=== PATIENT | male | born 1965 | race African-American/Black ===

== ENCOUNTER 2016-10-16 20:29 | Inpatient (IN) | payer OTHER ==
[2016-10-16 21:24] VITALS: BMI 27.8
--- NOTE | 2016-10-16 22:21 | HP ---
CIWA Score - CIWA Score Nausea/Vomitin Muscle Tremors: 3 Anxiety: 3 Agitation: 3 Paroxysmal Sweats: 2 Orientation: 0-Oriented Tacttile Disturbances: 2-Mild Itch/Numbness/Burn Auditory Disturbances: 2-Mild Harshness/Frighten Visual Disturbances: 2-Mild Sensitivity Headache: 2-Mild CIWA-Ar Total Score: 22 Admission ROS BHS - HPI Chief Complaint: i need help stop drinking alcohol cocaine and marijuana Allergies/Adverse Reactions: Allergies Allergy/AdvReac Type Severity Reaction Status Date / Time tomato [Tomato] Allergy Intermediate Swelling Verified 10/16/16 22:10 No Known Drug Allergies Allergy Unknown Verified 10/16/16 22:10 tomatoes Allergy Intermediate Swelling Uncoded 10/16/16 22:10 PASTA Allergy Unknown Swelling Uncoded 10/16/16 22:10 History of Present Illness: this 51 years old male with alcohol,cocaine,marijuana,seeking help to stop, using ,last detox [facility] 12/24/13 to 12/28/13 several admissions for detox but relapsing htn no medication longest period of sobriety 9 years Exam Limitations: No Limitations - Ebola screening Have you traveled outside of the country in the last 21 days: No (N) Have you had contact with anyone from an Ebola affected area: No Have you been sick,other than usual withdrawal symptoms: No Do you have a fever: No - Review of Systems Constitutional: Loss of Appetite, Malaise, Night Sweats, Changes in sleep, Weakness EENT: reports: Nose Congestion Respiratory: reports: No Symptoms reported Cardiac: reports: No Symptoms Reported GI: reports: Diarrhea, Nausea, Vomiting, Abdominal cramping : reports: No Symptoms Reported Musculoskeletal: reports: Back Pain, Muscle Pain Integumentary: reports: Dryness Neuro: reports: Headache, Tremors Endocrine: reports: No Symptoms Reported Hematology: reports: No Symptoms Reported Psychiatric: reports: No Sypmtoms Reported, Judgement Intact, Mood/Affect Appropiate, Orientated x3 (bipolar disorder with ptsd) Patient History - Patient Medical History Hx Anemia: Yes (no medication) Hx Asthma: No Hx Chronic Obstructive Pulmonary Disease (COPD): No Hx Cancer: No Hx Cardiac Disorders: No Hx Congestive Heart Failure: No Hx Hypertension: Yes (lisinpril 10mg ) Hx Hypercholesterolemia: No Hx Pacemaker: No HX Cerebrovascular Accident: No Hx Seizures: No Hx Dementia: No Hx Diabetes: Yes (no med) Hx Gastrointestinal Disorders: No Hx Liver Disease: No Hx Genitourinary Disorders: No Hx Sexually Transmitted Disorders: No Hx Renal Disease (ESRD): No Hx Thyroid Disease: No Hx Human Immunodeficiency Virus (HIV): No (negative 09/20 negative) Hx Hepatitis C: No Hx Depression: Yes (PTSD/cannot remember medication name) Hx Suicide Attempt: No (denies) Hx Bipolar Disorder: Yes (PTSD) Hx Schizophrenia: No Other Medical History: no suicidal,no homicidal - Patient Surgical History Past Surgical History: Yes Hx Neurologic Surgery: No Hx Cataract Extraction: No Hx Cardiac Surgery: No Hx Lung Surgery: No Hx Breast Surgery: No Hx Breast Biopsy: No Hx Abdominal Surgery: No Hx Appendectomy: No Hx Cholecystectomy: No Hx Genitourinary Surgery: No Hx Section: No Hx Orthopedic Surgery: Yes Other Surgical History: s/p L mandible surgery. 15 yrs ago / L ear surgery 2 yrs ago Anesthesia Reaction: No - PPD History Documented Results: Negative w/o proof Date: 12/26/13 Results: negative PPD to be Administered?: Yes - Smoking Cessation Smoking history: Current every day smoker Have you smoked in the past 12 months: Yes Aproximately how many cigarettes per day: 20 Hx Chewing Tobacco Use: No Initiated information on smoking cessation: Yes 'Breaking Loose' booklet given: 10/16/16 - Substance & Tx. History Hx Alcohol Use: Yes Hx Substance Use: Yes Substance Use Type: Alcohol, Cocaine, Marijuana - Substances Abused Alcohol Route: Oral Frequency: Daily Amount used: vodka 2 pints, beer 1 of 6 packs Age of first use: 11 Date of Last Use: 10/16/16 Marijuana/Hashish Route: Smoking Frequency: 3-6 times per week Amount used: $25 Age of first use: 12 Date of Last Use: 10/16/16 Family Disease History - Family Disease History Family History: Denies Admission Physical Exam S - Vital Signs Vital Signs: Vital Signs - 24 hr 10/16/16 21:23 Temperature 98.4 F Pulse Rate 85 Respiratory 20 Rate Blood Pressure 160/84 - Physical General Appearance: Yes: Moderate Distress, Tremorous, Irritable, Sweating HEENTM: Yes: Normal ENT Inspection, Normocephalic, ELPIDIO, Pharynx Normal Respiratory: Yes: Lungs Clear, Normal Breath Sounds, No Respiratory Distress Neck: Yes: Within Normal Limits, Supple, Trachea in good position Breast: Yes: Within Normal Limits Cardiology: Yes: Within Normal Limits, Regular Rhythm, Regular Rate, S1, S2 Abdominal: Yes: Within Normal Limits, Normal Bowel Sounds, Non Tender, Flat, Soft Genitourinary: Yes: Within Normal Limits Back: Yes: Normal Inspection, Muscle Spasm Musculoskeletal: Yes: Back pain, Muscle Pain Extremities: Yes: Within Normal Limits, Normal Range of Motion, Tremors Neurological: Yes: legal process specialist II-XII NML intact, Fully Oriented, Alert, Motor Strength 5/5 Integumentary: Yes: Dry Lymphatic: Yes: Within Normal Limits - Diagnostic (1) Alcohol dependence with uncomplicated withdrawal Current Visit: Yes Status: Acute (2) Cocaine dependence Current Visit: Yes Status: Acute (3) Cannabis dependence Current Visit: Yes Status: Acute (4) DM Diabetes mellitus type 2 Current Visit: No Status: Active (5) HYPERTENSION Current Visit: No Status: Active (6) Anemia Current Visit: No Status: Acute (7) Nicotine dependence Current Visit: No Status: Acute (8) PTSD (post-traumatic stress disorder) Current Visit: No Status: Acute (9) Bipolar affective disorder, mixed, moderate Current Visit: No Status: Suspected Cleared for Admission [facility] - Detox or Rehab [facility] Level of Care: Medically Managed Detox Regimen/Protocol: Librium [facility] Breath Alcohol Content Breath Alcohol Content: 0.035 Urine Drug Screen - Results Drug Screen Negative: No Urine Drug Screen Results: THC-Marijuana, SHARONDA-Cocaine, MET-Methamphetamine
[2016-10-16] MEDS ORDERED: MAGNESIUM HYDROX 2400MG/30ML ORAL SUSPENSION 30 ML CUP PO PRN (22:32)
[2016-10-16] MEDS ORDERED: MENTHOL/PHENOL 1 EACH UD MM PRN (22:32)
[2016-10-16] MEDS ORDERED: ACETAMINOPHEN 325 MG TABLET (FP) PO PRN (22:32)
[2016-10-16] MEDS ORDERED: P-EPHED 60MG/TRIPROLIDI 2.5MG TABLET PO PRN (22:32)
[2016-10-16] MEDS ORDERED: IBUPROFEN 400 MG TABLET (FP) PO PRN (22:32)
[2016-10-16] MEDS ORDERED: MAGNESIUM CITRATE 300 ML BOTTLE PO PRN (22:32)
[2016-10-16] MEDS ORDERED: chlordiazePOXIDE HCL 25 MG CAPSULE PO PRN (22:32)
[2016-10-16] MEDS ORDERED: guaiFENesin/D-METHORPHAN HB 10 ML UNIT-DOSE CUPS PO PRN (22:32)
[2016-10-16] MEDS ORDERED: MAG HYDROX/AL HYDROX/SIMETH 30 ML UNIT-DOSE CUP PO PRN (22:32)
[2016-10-16] MEDS ORDERED: hydrOXYzine PAMOATE 50 MG CAPSULE (FP) PO PRN (22:32)
[2016-10-16] MEDS ORDERED: diphenhydrAMINE HCL 50 MG CAPSULE PO PRN (22:32)
[2016-10-16] MEDS ORDERED: chlordiazePOXIDE HCL 25 MG CAPSULE PO ONE (22:32)
[2016-10-16] MEDS ORDERED: LOPERAMIDE HCL 2 MG CAPSULE PO PRN (22:32)
[2016-10-16] MEDS: NICOTINE POLACRILEX 2 MG GUM BC PRN (23:51)
[2016-10-17] MEDS: chlordiazePOXIDE HCL 25 MG CAPSULE PO SCH ×5 (06:09→21:59)
[2016-10-17] MEDS: NICOTINE POLACRILEX 2 MG GUM BC PRN ×2 (09:04→22:29)
--- NOTE | 2016-10-17 09:29 | PN ---
S CIWA - CIWA Score Nausea/Vomitin-No Nausea/No Vomiting Muscle Tremors: 4-Moderate,w/Arms Extend Anxiety: 3 Agitation: 3 Paroxysmal Sweats: 3 Orientation: 0-Oriented Tacttile Disturbances: 0-None Auditory Disturbances: 0-None Visual Disturbances: 0-None Headache: 0-None Present CIWA-Ar Total Score: 13 S Progress Note (SOAP) Subjective: sweats mild shakes interrupted sleep agitation Objective: 10/17/16 09:26 Vital Signs Temperature 97.3 F L 10/17/16 06:00 Pulse Rate 73 10/17/16 06:00 Respiratory Rate 20 10/17/16 06:00 Blood Pressure 145/84 10/17/16 06:00 O2 Sat by Pulse Oximetry (%) Laboratory Tests 10/16/16 22:28 POC Glucometer 113 labs pending awake/alert ambulating no acute distress Assessment: 10/17/16 09:28 withdrawal sx Plan: continue detox increase fluids pending labs
--- NOTE | 2016-10-17 10:58 | EKG ---
Test Reason : Blood Pressure : / mmHG Vent. Rate : 077 BPM Atrial Rate : 077 BPM P-R Int : 146 ms QRS Dur : 094 ms QT Int : 398 ms P-R-T Axes : 054 078 052 degrees QTc Int : 450 ms NORMAL SINUS RHYTHM NORMAL ECG NO PREVIOUS ECGS AVAILABLE Confirmed by JHON CAREY MD ([id number]) on 10/17/2016 10:58:03 AM Referred By: Confirmed By:JHON CAREY MD
[2016-10-17] MEDS: PRENATAL VITAMINS W/ FOLIC ACID TABLET (FP) PO SCH (11:37)
[2016-10-17] MEDS: amLODIPine BESYLATE 10 MG TABLET (FP) PO SCH (12:00)
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
[2016-10-17 17:28] LABS: URINE APPEARANCE CLEAR; URINE BILIRUBIN NEGATIVE (NEGATIVE); URINE BLOOD NEGATIVE (NEGATIVE); URINE COLOR LTYELLOW; URINE GLUCOSE (UA) NEGATIVE (NEGATIVE); URINE KETONE NEGATIVE (NEGATIVE); URINE LEUK ESTERASE NEGATIVE (NEGATIVE); URINE NITRITE NEGATIVE (NEGATIVE); URINE PROTEIN NEGATIVE (NEGATIVE); URINE UROBILINOGEN NEGATIVE E.U./dl (0.2-1.0)
[2016-10-17] MEDS: THIAMINE HCL 100 MG TABLET (FP) PO SCH (21:59)
[2016-10-18] MEDS: chlordiazePOXIDE HCL 25 MG CAPSULE PO SCH ×3 (05:47→17:21)
[2016-10-18] MEDS: NICOTINE POLACRILEX 2 MG GUM BC PRN ×3 (06:49→20:22)
--- NOTE | 2016-10-18 09:40 | PN ---
S CIWA - CIWA Score Nausea/Vomitin-No Nausea/No Vomiting Muscle Tremors: 4-Moderate,w/Arms Extend Anxiety: 3 Agitation: 3 Paroxysmal Sweats: 3 Orientation: 0-Oriented Tacttile Disturbances: 0-None Auditory Disturbances: 0-None Visual Disturbances: 0-None Headache: 0-None Present CIWA-Ar Total Score: 13 S Progress Note (SOAP) Subjective: sweats irritable agitation interrupted sleep Objective: 10/18/16 09:38 Vital Signs Temperature 97.9 F 10/18/16 10:00 Pulse Rate 84 10/18/16 10:00 Respiratory Rate 16 10/18/16 10:00 Blood Pressure 156/89 10/18/16 10:00 O2 Sat by Pulse Oximetry (%) Laboratory Tests 10/16/16 10/17/16 22:28 15:00 POC Glucometer 113 Urine Color Ltyellow Urine Appearance Clear Urine pH 6.0 Ur Specific [place] 1.020 Urine Protein Negative Urine Glucose (UA) Negative Urine Ketones Negative Urine Blood Negative Urine Nitrite Negative Urine Bilirubin Negative Urine Urobilinogen Negative Ur Leukocyte Esterase Negative rest of labs pending awake/alert ambulating no acute distress Assessment: 10/18/16 09:39 withdrawal sx Plan: continue detox increase fluids labs pending
[2016-10-18 09:57] LABS: MCH 24.1 pg (25.7-33.7); MCHC 31.8 g/dl (32.0-35.9); MEAN CELL VOLUME 75.9 fl (80-96); MEAN PLT VOLUME 8.4 fl (7.5-11.1); PLATELET COUNT 210 K/MM3 (134-434); RDW 15.5 % (11.9-15.9); WHITE BLOOD COUNT 4.2 K/mm3 (4.0-10.0)
[2016-10-18] MEDS: PARoxetine HCL 20 MG TABLET (FP) PO SCH (10:25)
[2016-10-18] MEDS: PRENATAL VITAMINS W/ FOLIC ACID TABLET (FP) PO SCH (10:25)
[2016-10-18] MEDS: amLODIPine BESYLATE 10 MG TABLET (FP) PO SCH (10:25)
[2016-10-18 10:51] LABS: ALBUMIN 3.6 g/dl (3.4-5.0); ALK PHOS 76 U/L (45-117); ANION GAP 10 (8-16); BILIRUBIN,TOTAL 0.6 mg/dL (0.2-1.0); CALCIUM 9.4 mg/dL (8.5-10.1); CO2 27 mmol/L (21-32); COCKROFT - GAULT 99.65; CREATININE 1.1 mg/dL (0.7-1.3); GLUCOSE,RANDOM 106 mg/dL (74-106); SGOT/AST 44 U/L (15-37); SGPT/ALT 61 U/L (12-78); TOT PROT 6.8 g/dl (6.4-8.2)
[2016-10-18 12:34] LABS: HIV 1 & 2 AB NEGATIVE; HIV 1 AGp24 NEGATIVE
--- NOTE | 2016-10-18 15:36 | PN ---
[facility] Progress Note Note: Psychiatry Attending's note : BMP results seen.Normal electrolytes. BUN = 10 / creatinine = 1.1 / GFR > 60. Normal renal function.Urinalysis: unremarkable. Thyroid function tests requested.Pending. [place] 300 mg po bid. Side effects/benefits discussed with patient. He remains in agreement with this careplan. Will follow lithium level in 5 more days.
[2016-10-18] MEDS: THIAMINE HCL 100 MG TABLET (FP) PO SCH (22:08)
[2016-10-18] MEDS: chlordiazePOXIDE 5 MG CAPSULE PO SCH (22:08)
[2016-10-18] MEDS: LITHIUM CARBONATE 300 MG CAPSULE (FP) PO SCH (22:08)
[2016-10-19] MEDS: chlordiazePOXIDE 5 MG CAPSULE PO SCH ×4 (05:46→17:57)
[2016-10-19] MEDS: NICOTINE POLACRILEX 2 MG GUM BC PRN ×2 (05:50→17:57)
--- NOTE | 2016-10-19 12:06 | PN ---
BHS Progress Note (SOAP) Subjective: tired irritable Objective: 10/19/16 12:04 Vital Signs Temperature 97.5 F L 10/19/16 09:52 Pulse Rate 79 10/19/16 09:52 Respiratory Rate 20 10/19/16 09:52 Blood Pressure 145/79 10/19/16 09:52 O2 Sat by Pulse Oximetry (%) awake/alert ambulating no acute distress Assessment: 10/19/16 12:05 withdrawal sx Plan: continue detox increase fluids d/c in am
[2016-10-19] MEDS: LITHIUM CARBONATE 300 MG CAPSULE (FP) PO SCH ×2 (14:20→22:38)
[2016-10-19] MEDS: amLODIPine BESYLATE 10 MG TABLET (FP) PO SCH (14:20)
[2016-10-19] MEDS: PARoxetine HCL 20 MG TABLET (FP) PO SCH (14:20)
[2016-10-19] MEDS: PRENATAL VITAMINS W/ FOLIC ACID TABLET (FP) PO SCH (14:20)
[2016-10-19] MEDS: THIAMINE HCL 100 MG TABLET (FP) PO SCH (22:38)
[2016-10-19] MEDS: chlordiazePOXIDE HCL 10 MG CAPSULE PO SCH (22:38)
[2016-10-20] MEDS: chlordiazePOXIDE HCL 10 MG CAPSULE PO SCH ×2 (06:02→10:03)
[2016-10-20] MEDS: NICOTINE POLACRILEX 2 MG GUM BC PRN ×2 (06:18→10:04)
--- NOTE | 2016-10-20 08:27 | DS ---
[facility] Detox Discharge Summary Admission Date: 10/16/16 Discharge Date: 10/20/16 - History Present History: Alcohol Dependence, Cannabis Dependence, Cocaine Dependence - Physical Exam Results Vital Signs: Vital Signs Temperature 96.7 F L 10/20/16 07:33 Pulse Rate 74 10/20/16 07:33 Respiratory Rate 18 10/20/16 07:33 Blood Pressure 127/70 10/20/16 07:33 O2 Sat by Pulse Oximetry (%) - Treatment Hospital Course: Detox Protocol Followed, Detoxed Safely, Responded well, Discharged Condition Good, Rehab Referral Accepted - Medication Discharge Medications: Ambulatory Orders NK [No Known Home Medication] 10/16/16 - Diagnosis (1) Alcohol dependence with uncomplicated withdrawal Current Visit: Yes Status: Chronic (2) Bipolar disorder Current Visit: Yes Status: Acute (3) Cannabis dependence Current Visit: Yes Status: Chronic (4) Cocaine dependence Current Visit: Yes Status: Chronic Qualifiers: Substance use status: uncomplicated Qualified Code(s): F14.20 - Cocaine dependence, uncomplicated (5) Nicotine dependence Current Visit: Yes Status: Chronic Qualifiers: Nicotine product type: cigarettes Substance use status: uncomplicated Qualified Code(s): F17.210 - Nicotine dependence, cigarettes, uncomplicated (6) Acid reflux Current Visit: Yes Status: Chronic Qualifiers: Esophagitis presence: without esophagitis Qualified Code(s): K21.9 - Gastro-esophageal reflux disease without esophagitis (7) Anemia Current Visit: Yes Status: Chronic Qualifiers: Anemia type: unspecified type Qualified Code(s): D64.9 - Anemia, unspecified (8) DM Diabetes mellitus type 2 Current Visit: Yes Status: Chronic (9) HYPERTENSION Current Visit: Yes Status: Chronic (10) PTSD (post-traumatic stress disorder) Current Visit: Yes Status: Chronic (11) Cannabis abuse with intoxication Current Visit: No Status: Acute (12) Depression Current Visit: No Status: Acute (13) Drug-induced mood disorder Current Visit: No Status: Acute (14) Bipolar affective disorder, mixed, moderate Current Visit: No Status: Suspected - AMA Did Patient Leave Against Medical Advice: No ([facility])
[2016-10-20] MEDS: PRENATAL VITAMINS W/ FOLIC ACID TABLET (FP) PO SCH (10:03)
[2016-10-20] MEDS: PARoxetine HCL 20 MG TABLET (FP) PO SCH (10:03)
[2016-10-20] MEDS: amLODIPine BESYLATE 10 MG TABLET (FP) PO SCH (10:03)
[2016-10-20] MEDS: LITHIUM CARBONATE 300 MG CAPSULE (FP) PO SCH (10:03)
[2016-10-20 11:01] VITALS: BP 129/67; PULSE 85; TEMP 97.9
== END 2016-10-20 10:40 | disposition home or self-care (01) | DRG 774 ==
LOC: YASAS 20:29 → Y6N 22:35
PROVIDERS: ADMIT Internal Medicine; ATTEND Internal Medicine
PROC: HZ2ZZZZ Detoxification Services for Substance Abuse Treatment (ICD-10-PCS; principal; 2016-10-16)
DX: F10.230 Alcohol dependence with withdrawal, uncomplicated (principal); F14.20 Cocaine dependence, uncomplicated; F12.20 Cannabis dependence, uncomplicated; F17.210 Nicotine dependence, cigarettes, uncomplicated; F43.10 Post-traumatic stress disorder, unspecified; F32.9 Major depressive disorder, single episode, unspecified; F31.62 Bipolar disorder, current episode mixed, moderate; F19.24 Other psychoactive substance dependence with psychoactive substance-induced mood disorder; K21.9 Gastro-esophageal reflux disease without esophagitis; D64.9 Anemia, unspecified; E11.9 Type 2 diabetes mellitus without complications; I10 Essential (primary) hypertension; M10.9 Gout, unspecified
CPT/HCPCS: 36415; 80053; 80178; 81003; 85027; 86593; 87389; 93005; 93010

== ENCOUNTER 2016-12-01 11:31 | Inpatient (IN) | payer OTHER ==
[2016-12-01 12:25] VITALS: BMI 28.7
--- NOTE | 2016-12-01 17:16 | HP ---
CIWA Score - CIWA Score Nausea/Vomitin-No Nausea/No Vomiting Muscle Tremors: 4-Moderate,w/Arms Extend Anxiety: 3 Agitation: 4-Moderately Restless Paroxysmal Sweats: 3 Orientation: 0-Oriented Tacttile Disturbances: 0-None Auditory Disturbances: 0-None Visual Disturbances: 0-None Headache: 0-None Present CIWA-Ar Total Score: 14 Admission ROS BHS - HPI Chief Complaint: I am here to detox. Allergies/Adverse Reactions: Allergies Allergy/AdvReac Type Severity Reaction Status Date / Time tomato [Tomato] Allergy Intermediate Swelling Verified 12/01/16 16:38 No Known Drug Allergies Allergy Unknown Verified 12/01/16 16:38 tomatoes Allergy Intermediate Swelling Uncoded 12/01/16 16:38 PASTA Allergy Unknown Swelling Uncoded 12/01/16 16:38 History of Present Illness: pt is a 51yr old male with a history of alcohol and cannabis dependence seeking detox for treatment. 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.) Respiratory: reports: No Symptoms reported Cardiac: reports: No Symptoms Reported GI: reports: Poor Fluid Intake : reports: No Symptoms Reported Musculoskeletal: reports: No Symptoms Reported Integumentary: reports: [place], Sweating Neuro: reports: No Symptoms reported Endocrine: reports: [place] Hematology: reports: No Symptoms Reported Psychiatric: reports: Judgement Intact, Mood/Affect Appropiate, Orientated x3, Agitated, Anxious Other Systems: Reviewed and Negative Patient History - Patient Medical History Hx Anemia: No Hx Asthma: No Hx Chronic Obstructive Pulmonary Disease (COPD): No Hx Cancer: No Hx Cardiac Disorders: No Hx Congestive Heart Failure: No Hx Hypertension: Yes (lisinpril 10mg ) Hx Hypercholesterolemia: No Hx Pacemaker: No HX Cerebrovascular Accident: No Hx Seizures: No Hx Dementia: No Hx Diabetes: No Hx Gastrointestinal Disorders: No Hx Liver Disease: No Hx Genitourinary Disorders: No Hx Sexually Transmitted Disorders: No Hx Renal Disease (ESRD): No Hx Thyroid Disease: No Hx Human Immunodeficiency Virus (HIV): No (negative 09/20 negative) Hx Hepatitis C: No (negative) Hx Depression: Yes (PTSD/cannot remember medication name) Hx Suicide Attempt: No (denies) Hx Bipolar Disorder: Yes (PTSD) Hx Schizophrenia: No - Patient Surgical History Past Surgical History: Yes Hx Neurologic Surgery: No Hx Cataract Extraction: No Hx Cardiac Surgery: No Hx Lung Surgery: No Hx Breast Surgery: No Hx Breast Biopsy: No Hx Abdominal Surgery: No Hx Appendectomy: No Hx Cholecystectomy: No Hx Genitourinary Surgery: No Hx Section: No Hx Orthopedic Surgery: Yes Other Surgical History: s/p L mandible surgery. 15 yrs ago / L ear surgery 2 yrs ago Anesthesia Reaction: No - PPD History Previous Implant?: Yes Documented Results: Negative w/proof Date: 10/18/16 Results: negative PPD to be Administered?: No - Reproductive History Patient is a Female of Child Bearing Age (11 -55 yrs old): No - Smoking Cessation Smoking history: Current every day smoker Have you smoked in the past 12 months: Yes Aproximately how many cigarettes per day: 20 Hx Chewing Tobacco Use: No Initiated information on smoking cessation: Yes 'Breaking Loose' booklet given: 12/01/16 - Substance & Tx. History Hx Alcohol Use: Yes Hx Substance Use: Yes Substance Use Type: Alcohol, Marijuana Hx Substance Use Treatment: Yes ([facility]) - Substances Abused Alcohol Route: Oral Frequency: Daily Amount used: liquor- 3 pints, beer- 1 six pack Age of first use: 11 Date of Last Use: 12/01/16 Marijuana/Hashish Route: Smoking Frequency: 1-2 times per week Amount used: 2 blunts Age of first use: 14 Date of Last Use: 12/01/16 Family Disease History - Family Disease History Family Disease History: Other: Mother () Admission Physical Exam [facility] - Vital Signs Vital Signs: Vital Signs - 24 hr 12/01/16 12:22 Temperature 96.4 F L Pulse Rate 80 Respiratory 20 Rate Blood Pressure 149/79 - Physical General Appearance: Yes: Appropriately Dressed, Mild Distress, Tremorous, Irritable, Sweating, Anxious HEENTM: Yes: Hearing grossly Normal, Normal Voice Respiratory: Yes: Lungs Clear, Normal Breath Sounds, No Respiratory Distress Neck: Yes: No masses,lesions,Nodules Breast: Yes: Within Normal Limits Cardiology: Yes: Regular Rhythm, Regular Rate, S1, S2 Abdominal: Yes: Normal Bowel Sounds Genitourinary: Yes: Within Normal Limits Back: Yes: Normal Inspection Musculoskeletal: Yes: full range of Motion Extremities: Yes: Normal Inspection, Non-Tender Neurological: Yes: Fully Oriented, Alert, Normal Response Integumentary: Yes: Normal Color, Diaphoresis Lymphatic: Yes: Within Normal Limits - Diagnostic (1) Alcohol dependence with uncomplicated withdrawal Current Visit: Yes Status: Chronic (2) Cannabis dependence Current Visit: Yes Status: Chronic (3) HYPERTENSION Current Visit: Yes Status: Chronic (4) Nicotine dependence Current Visit: Yes Status: Chronic Qualifiers: Nicotine product type: cigarettes Substance use status: uncomplicated Qualified Code(s): F17.210 - Nicotine dependence, cigarettes, uncomplicated Cleared for Admission [facility] - Detox or Rehab [facility] Level of Care: Medically Managed Detox Regimen/Protocol: Valium S Breath Alcohol Content Breath Alcohol Content: 0 Urine Drug Screen - Results Drug Screen Negative: No Urine Drug Screen Results: THC-Marijuana, BZO-Benzodiazepines
[2016-12-01] MEDS ORDERED: P-EPHED 60MG/TRIPROLIDI 2.5MG TABLET PO PRN (17:23)
[2016-12-01] MEDS ORDERED: diphenhydrAMINE HCL 50 MG CAPSULE PO PRN (17:23)
[2016-12-01] MEDS ORDERED: IBUPROFEN 400 MG TABLET (FP) PO PRN (17:23)
[2016-12-01] MEDS ORDERED: diazePAM 5 MG TABLET PO ONE (17:23)
[2016-12-01] MEDS ORDERED: LOPERAMIDE HCL 2 MG CAPSULE PO PRN (17:23)
[2016-12-01] MEDS ORDERED: MENTHOL/PHENOL 1 EACH UD MM PRN (17:23)
[2016-12-01] MEDS ORDERED: MAG HYDROX/AL HYDROX/SIMETH 30 ML UNIT-DOSE CUP PO PRN (17:23)
[2016-12-01] MEDS ORDERED: hydrOXYzine PAMOATE 50 MG CAPSULE (FP) PO PRN (17:23)
[2016-12-01] MEDS ORDERED: MAGNESIUM HYDROX 2400MG/30ML ORAL SUSPENSION 30 ML CUP PO PRN (17:23)
[2016-12-01] MEDS ORDERED: guaiFENesin/D-METHORPHAN HB 10 ML UNIT-DOSE CUPS PO PRN (17:23)
[2016-12-01] MEDS ORDERED: MAGNESIUM CITRATE 300 ML BOTTLE PO PRN (17:23)
[2016-12-01] MEDS: LISINOPRIL 10 MG TABLET (FP) PO SCH (17:59)
[2016-12-01] MEDS: HYDROCHLOROTHIAZIDE 25 MG TABLET (FP) PO SCH (17:59)
[2016-12-01] MEDS: THIAMINE HCL 100 MG TABLET (FP) PO SCH (22:14)
[2016-12-01] MEDS: diazePAM 5 MG TABLET PO SCH (22:14)
[2016-12-02] MEDS: diazePAM 5 MG TABLET PO SCH ×3 (05:41→22:35)
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
[2016-12-02] MEDS: PRENATAL VITAMINS W/ FOLIC ACID TABLET (FP) PO SCH (10:27)
[2016-12-02] MEDS: LISINOPRIL 10 MG TABLET (FP) PO SCH (10:28)
[2016-12-02] MEDS: HYDROCHLOROTHIAZIDE 25 MG TABLET (FP) PO SCH (10:28)
[2016-12-02 10:43] LABS: MCH 24.2 pg (25.7-33.7); MCHC 31.4 g/dl (32.0-35.9); MEAN CELL VOLUME 76.9 fl (80-96); MEAN PLT VOLUME 8.2 fl (7.5-11.1); PLATELET COUNT 217 K/MM3 (134-434); RDW 16.3 % (11.9-15.9); WHITE BLOOD COUNT 5.6 K/mm3 (4.0-10.0)
[2016-12-02 10:46] LABS: ALBUMIN 3.4 g/dl (3.4-5.0); ANION GAP 8 (8-16); CO2 30 mmol/L (21-32); GLUCOSE,RANDOM 97 mg/dL (74-106); SGOT/AST 22 U/L (15-37); SGPT/ALT 31 U/L (12-78)
[2016-12-02 10:48] LABS: ALK PHOS 60 U/L (45-117); BILIRUBIN,TOTAL 0.6 mg/dL (0.2-1.0); CALCIUM 9.2 mg/dL (8.5-10.1); CREATININE 1.2 mg/dL (0.7-1.3); TOT PROT 6.6 g/dl (6.4-8.2)
[2016-12-02] MEDS: NICOTINE 21 MG/24 HOURS TOPICAL PATCH TD SCH (11:03)
--- NOTE | 2016-12-02 15:49 | PN ---
[facility] CIWA - CIWA Score Nausea/Vomitin-Mild Nausea/No Vomiting Muscle Tremors: 2 Anxiety: 5 Agitation: 0-Normal Activity Paroxysmal Sweats: 3 Orientation: 0-Oriented Tacttile Disturbances: 3-Moderate Itch/Numb/Burn Auditory Disturbances: 0-None Visual Disturbances: 0-None Headache: 0-None Present CIWA-Ar Total Score: 14 S Progress Note (SOAP) Subjective: Anxious, Sweating. Objective: PT. A & O X 3. NO ACUTE DISTRESS. PT. DENIES CHEST PAIN. 12/02/16 15:47 Vital Signs Temperature 97.5 F L 12/02/16 13:46 Pulse Rate 74 12/02/16 13:46 Respiratory Rate 18 12/02/16 13:46 Blood Pressure 117/72 12/02/16 13:46 O2 Sat by Pulse Oximetry (%) Laboratory Tests 12/02/16 12/02/16 12/02/16 08:00 08:00 08:00 WBC 5.6 D RBC 4.92 Hgb 11.9 Hct 37.8 MCV 76.9 L MCH 24.2 L MCHC 31.4 L RDW 16.3 H Plt Count 217 MPV 8.2 Sodium 140 Potassium 4.0 Chloride 102 Carbon Dioxide 30 Anion Gap 8 BUN 9 Creatinine 1.2 Creat Clearance w eGFR > 60 Random Glucose 97 Calcium 9.2 Total Bilirubin 0.6 AST 22 D ALT 31 D Alkaline Phosphatase 60 D Total Protein 6.6 Albumin 3.4 RPR Titer Nonreactive LABS NOTED. UA NOT YET COLLECTED. 12/02/16 15:48 Assessment: 12/02/16 15:48 WITHDRAWAL SYMPTOMS. Plan: CONTINUE DETOX.
[2016-12-02] MEDS: diazePAM 5 MG TABLET PO PRN (17:35)
[2016-12-02] MEDS: NICOTINE POLACRILEX 4 MG GUM BUC PRN (17:35)
[2016-12-02] MEDS: THIAMINE HCL 100 MG TABLET (FP) PO SCH (22:35)
[2016-12-03] MEDS: diazePAM 5 MG TABLET PO PRN (05:17)
[2016-12-03] MEDS: diazePAM 5 MG TABLET PO SCH ×2 (10:52→21:50)
[2016-12-03] MEDS: HYDROCHLOROTHIAZIDE 25 MG TABLET (FP) PO SCH (10:53)
[2016-12-03] MEDS: LISINOPRIL 10 MG TABLET (FP) PO SCH (10:53)
[2016-12-03] MEDS: PRENATAL VITAMINS W/ FOLIC ACID TABLET (FP) PO SCH (10:53)
[2016-12-03] MEDS: NICOTINE 21 MG/24 HOURS TOPICAL PATCH TD SCH (10:54)
[2016-12-03] MEDS: NICOTINE POLACRILEX 4 MG GUM BUC PRN ×2 (10:55→21:51)
--- NOTE | 2016-12-03 14:43 | PN ---
S CIWA - CIWA Score Nausea/Vomitin Muscle Tremors: 4-Moderate,w/Arms Extend Anxiety: 4-Mod. Anxious/Guarded Agitation: 3 Paroxysmal Sweats: No Perspiration Orientation: 0-Oriented Tacttile Disturbances: 1-Very Mild Itch/Numbness Auditory Disturbances: 1-Very Mild Visual Disturbances: 0-None Headache: 2-Mild CIWA-Ar Total Score: 18 [facility] Progress Note (SOAP) Subjective: Sweating, anxious, interrupted sleep, nausea Objective: 12/03/16 14:41 Last Vital Signs Temp Pulse Resp BP Pulse Ox 97.7 F 81 18 139/77 12/03/16 13:44 12/03/16 13:44 12/03/16 13:44 12/03/16 13:44 Laboratory Tests 12/02/16 12/02/16 12/02/16 08:00 08:00 08:00 WBC 5.6 D RBC 4.92 Hgb 11.9 Hct 37.8 MCV 76.9 L MCH 24.2 L MCHC 31.4 L RDW 16.3 H Plt Count 217 MPV 8.2 Sodium 140 Potassium 4.0 Chloride 102 Carbon Dioxide 30 Anion Gap 8 BUN 9 Creatinine 1.2 Creat Clearance w eGFR > 60 Random Glucose 97 Calcium 9.2 Total Bilirubin 0.6 AST 22 D ALT 31 D Alkaline Phosphatase 60 D Total Protein 6.6 Albumin 3.4 RPR Titer Nonreactive Labs noted Assessment: 12/03/16 14:42 Withdrawal symptoms Plan: Continue detox Encouraged to drink lots of water
[2016-12-03] MEDS: THIAMINE HCL 100 MG TABLET (FP) PO SCH (21:49)
[2016-12-04] MEDS: diazePAM 5 MG TABLET PO PRN (05:30)
--- NOTE | 2016-12-04 10:00 | EKG ---
Test Reason : Blood Pressure : / mmHG Vent. Rate : 076 BPM Atrial Rate : 076 BPM P-R Int : 140 ms QRS Dur : 084 ms QT Int : 398 ms P-R-T Axes : 059 082 053 degrees QTc Int : 447 ms NORMAL SINUS RHYTHM NORMAL ECG WHEN COMPARED WITH ECG OF 16-OCT-2016 22:59, NO SIGNIFICANT CHANGE WAS FOUND Confirmed by JHON CAREY MD ([id number]) on 12/04/2016 9:59:22 AM Referred By: Byron Walton Confirmed By:JHON CAREY MD
[2016-12-04] MEDS: HYDROCHLOROTHIAZIDE 25 MG TABLET (FP) PO SCH (10:51)
[2016-12-04] MEDS: PRENATAL VITAMINS W/ FOLIC ACID TABLET (FP) PO SCH (10:51)
[2016-12-04] MEDS: LISINOPRIL 10 MG TABLET (FP) PO SCH (10:51)
[2016-12-04] MEDS: NICOTINE 21 MG/24 HOURS TOPICAL PATCH TD SCH (10:51)
[2016-12-04] MEDS: diazePAM 5 MG TABLET PO SCH (10:52)
--- NOTE | 2016-12-04 14:31 | PN ---
[facility] Progress Note (SOAP) Subjective: Sweating,interrupted sleep,restless Objective: 12/04/16 14:29 Vital Signs - 8 hr 12/04/16 09:24 Temperature 97.3 F L Pulse Rate 65 Respiratory 18 Rate Blood Pressure 145/83 Laboratory Last Values WBC 5.6 K/mm3 (4.0-10.0) D 12/02/16 08:00 RBC 4.92 M/mm3 (4.00-5.60) 12/02/16 08:00 Hgb 11.9 GM/dL (11.7-16.9) 12/02/16 08:00 Hct 37.8 % (35.4-49) 12/02/16 08:00 MCV 76.9 fl (80-96) L 12/02/16 08:00 MCH 24.2 pg (25.7-33.7) L 12/02/16 08:00 MCHC 31.4 g/dl (32.0-35.9) L 12/02/16 08:00 RDW 16.3 % (11.9-15.9) H 12/02/16 08:00 Plt Count 217 K/MM3 (134-434) 12/02/16 08:00 MPV 8.2 fl (7.5-11.1) 12/02/16 08:00 Sodium 140 mmol/L (136-145) 12/02/16 08:00 Potassium 4.0 mmol/L (3.5-5.1) 12/02/16 08:00 Chloride 102 mmol/L (98-107) 12/02/16 08:00 Carbon Dioxide 30 mmol/L (21-32) 12/02/16 08:00 Anion Gap 8 (8-16) 12/02/16 08:00 BUN 9 mg/dL (7-18) 12/02/16 08:00 Creatinine 1.2 mg/dL (0.7-1.3) 12/02/16 08:00 Creat Clearance w eGFR > 60 (>60) 12/02/16 08:00 Random Glucose 97 mg/dL (74-106) 12/02/16 08:00 Calcium 9.2 mg/dL (8.5-10.1) 12/02/16 08:00 Total Bilirubin 0.6 mg/dL (0.2-1.0) 12/02/16 08:00 AST 22 U/L (15-37) D 12/02/16 08:00 ALT 31 U/L (12-78) D 12/02/16 08:00 Alkaline Phosphatase 60 U/L (45-117) D 12/02/16 08:00 Total Protein 6.6 g/dl (6.4-8.2) 12/02/16 08:00 Albumin 3.4 g/dl (3.4-5.0) 12/02/16 08:00 RPR Titer Nonreactive (NONREACTIVE) 12/02/16 08:00 labs noted Assessment: 12/04/16 14:30 Withdrawal sx. Plan: Continue detox
[2016-12-04 17:00] LABS: URINE APPEARANCE CLEAR; URINE BILIRUBIN NEGATIVE (NEGATIVE); URINE BLOOD NEGATIVE (NEGATIVE); URINE COLOR YELLOW; URINE GLUCOSE (UA) NEGATIVE (NEGATIVE); URINE KETONE NEGATIVE (NEGATIVE); URINE LEUK ESTERASE NEGATIVE (NEGATIVE); URINE NITRITE NEGATIVE (NEGATIVE); URINE PROTEIN NEGATIVE (NEGATIVE); URINE UROBILINOGEN NEGATIVE mg/dL (0.2-1.0)
[2016-12-05] MEDS: THIAMINE HCL 100 MG TABLET (FP) PO SCH (00:01)
[2016-12-05] MEDS: diazePAM 5 MG TABLET PO SCH (00:01)
[2016-12-05] MEDS: ACETAMINOPHEN 325 MG TABLET (FP) PO PRN ×2 (01:11→05:19)
[2016-12-05 06:13] VITALS: BP 139/82; PULSE 64; TEMP 98
[2016-12-05] MEDS ORDERED: diazePAM 5 MG TABLET PO SCH (10:00)
--- NOTE | 2016-12-05 13:30 | DS ---
[facility] Detox Discharge Summary Admission Date: 12/01/16 Discharge Date: 12/05/16 - History Present History: Alcohol Dependence, Cannabis Dependence Pertinent Past History: HTN - Physical Exam Results Vital Signs: Vital Signs Temperature 98 F 12/05/16 06:12 Pulse Rate 64 12/05/16 06:12 Respiratory Rate 18 12/05/16 06:12 Blood Pressure 139/82 12/05/16 06:12 O2 Sat by Pulse Oximetry (%) Pertinent Admission Physical Exam Findings: Withdrawal sx. Laboratory Last Values WBC 5.6 K/mm3 (4.0-10.0) D 12/02/16 08:00 RBC 4.92 M/mm3 (4.00-5.60) 12/02/16 08:00 Hgb 11.9 GM/dL (11.7-16.9) 12/02/16 08:00 Hct 37.8 % (35.4-49) 12/02/16 08:00 MCV 76.9 fl (80-96) L 12/02/16 08:00 MCH 24.2 pg (25.7-33.7) L 12/02/16 08:00 MCHC 31.4 g/dl (32.0-35.9) L 12/02/16 08:00 RDW 16.3 % (11.9-15.9) H 12/02/16 08:00 Plt Count 217 K/MM3 (134-434) 12/02/16 08:00 MPV 8.2 fl (7.5-11.1) 12/02/16 08:00 Sodium 140 mmol/L (136-145) 12/02/16 08:00 Potassium 4.0 mmol/L (3.5-5.1) 12/02/16 08:00 Chloride 102 mmol/L (98-107) 12/02/16 08:00 Carbon Dioxide 30 mmol/L (21-32) 12/02/16 08:00 Anion Gap 8 (8-16) 12/02/16 08:00 BUN 9 mg/dL (7-18) 12/02/16 08:00 Creatinine 1.2 mg/dL (0.7-1.3) 12/02/16 08:00 Creat Clearance w eGFR > 60 (>60) 12/02/16 08:00 Random Glucose 97 mg/dL (74-106) 12/02/16 08:00 Calcium 9.2 mg/dL (8.5-10.1) 12/02/16 08:00 Total Bilirubin 0.6 mg/dL (0.2-1.0) 12/02/16 08:00 AST 22 U/L (15-37) D 12/02/16 08:00 ALT 31 U/L (12-78) D 12/02/16 08:00 Alkaline Phosphatase 60 U/L (45-117) D 12/02/16 08:00 Total Protein 6.6 g/dl (6.4-8.2) 12/02/16 08:00 Albumin 3.4 g/dl (3.4-5.0) 12/02/16 08:00 Urine Color Yellow 12/03/16 16:30 Urine Appearance Clear 12/03/16 16:30 Urine pH 5.0 (5.0-8.0) 12/03/16 16:30 Ur Specific [place] 1.025 (1.005-1.025) 12/03/16 16:30 Urine Protein Negative (NEGATIVE) 12/03/16 16:30 Urine Glucose (UA) Negative (NEGATIVE) 12/03/16 16:30 Urine Ketones Negative (NEGATIVE) 12/03/16 16:30 Urine Blood Negative (NEGATIVE) 12/03/16 16:30 Urine Nitrite Negative (NEGATIVE) 12/03/16 16:30 Urine Bilirubin Negative (NEGATIVE) 12/03/16 16:30 Urine Urobilinogen Negative mg/dL (0.2-1.0) 12/03/16 16:30 Ur Leukocyte Esterase Negative (NEGATIVE) 12/03/16 16:30 RPR Titer Nonreactive (NONREACTIVE) 12/02/16 08:00 labs noted - Treatment Hospital Course: Detox Protocol Followed, Detoxed Safely, Responded well, Discharged Condition Good, Rehab Referral Accepted Patient has Accepted a Rehab Referral to: [facility] out-pt. - Medication Discharge Medications: Ambulatory Orders Hydrochlorothiazide [Hctz -] 25 mg PO DAILY 12/01/16 Lisinopril [Prinivil -] 10 mg PO DAILY 12/01/16 - Diagnosis (1) Bipolar disorder Status: Acute (2) PTSD (post-traumatic stress disorder) Status: Acute (3) Alcohol dependence with uncomplicated withdrawal Status: Acute (4) Cannabis dependence Status: Chronic (5) HYPERTENSION Status: Chronic (6) Nicotine dependence Status: Chronic Qualifiers: Nicotine product type: cigarettes Substance use status: uncomplicated Qualified Code(s): F17.210 - Nicotine dependence, cigarettes, uncomplicated - AMA Did Patient Leave Against Medical Advice: No
== END 2016-12-05 08:40 | disposition home or self-care (01) | DRG 775 ==
LOC: YASAS 11:31 → Y3N 16:55
PROVIDERS: ADMIT Internal Medicine; ATTEND Internal Medicine
PROC: HZ2ZZZZ Detoxification Services for Substance Abuse Treatment (ICD-10-PCS; principal; 2016-12-05)
DX: F10.230 Alcohol dependence with withdrawal, uncomplicated (principal); F12.20 Cannabis dependence, uncomplicated; F17.210 Nicotine dependence, cigarettes, uncomplicated; F43.10 Post-traumatic stress disorder, unspecified; F31.9 Bipolar disorder, unspecified; I10 Essential (primary) hypertension
CPT/HCPCS: 36415; 80053; 81003; 85027; 86593; 93005; 93010

== ENCOUNTER 2020-06-11 16:57 | Inpatient (IN) | payer OTHER ==
[2020-06-11 18:10] VITALS: BMI 34.2
[2020-06-11] MEDS ORDERED: MAGNESIUM HYDROX 2400MG/30ML ORAL SUSPENSION 30 ML CUP PO PRN (21:37)
[2020-06-11] MEDS ORDERED: ONDANSETRON *ODT* 4 MG TABLET SL PRN (21:37)
[2020-06-11] MEDS ORDERED: MAGNESIUM CITRATE 300 ML BOTTLE PO PRN (21:37)
[2020-06-11] MEDS ORDERED: chlordiazePOXIDE HCL 25 MG CAPSULE PO PRN (21:37)
[2020-06-11] MEDS ORDERED: ACETAMINOPHEN 325 MG TABLET (FP) PO PRN ×2 (21:37)
[2020-06-11] MEDS ORDERED: METHOCARBAMOL 500 MG TABLET PO PRN (21:37)
[2020-06-11] MEDS ORDERED: IBUPROFEN 400 MG TABLET (FP) PO PRN (21:37)
[2020-06-11] MEDS ORDERED: MENTHOL/PHENOL 1 EACH UD MM PRN (21:37)
[2020-06-11] MEDS ORDERED: MAG HYDROX/AL HYDROX/SIMETH 30 ML UNIT-DOSE CUP PO PRN (21:37)
[2020-06-11] MEDS ORDERED: BISMUTH SUBSALICYLATE 524 MG/30 ML UD PO PRN (21:37)
[2020-06-11] MEDS ORDERED: NICOTINE POLACRILEX 2 MG GUM BUC PRN (21:37)
[2020-06-11] MEDS: chlordiazePOXIDE HCL 25 MG CAPSULE PO SCH (23:37)
[2020-06-11] MEDS: MELATONIN 5 MG TABLETS PO SCH (23:37)
[2020-06-11] MEDS: THIAMINE HCL 100 MG TABLET (FP) PO SCH (23:37)
[2020-06-12] MEDS: chlordiazePOXIDE HCL 25 MG CAPSULE PO SCH ×4 (06:35→22:53)
[2020-06-12] MEDS: INSULIN SLIDING SCALE (NOVOLOG) 1 VIAL SQ SCH ×2 (06:37→17:10)
[2020-06-12 10:23] LABS: HEMATOCRIT 35.1 % (35.4-49); HEMOGLOBIN 11.2 GM/dL (11.7-16.9); MCH 23.3 pg (25.7-33.7); MCHC 31.8 g/dl (32.0-35.9); MEAN CELL VOLUME 73.3 fl (80-96); MEAN PLT VOLUME 8.5 fl (7.5-11.1); PLATELET COUNT 252 K/MM3 (134-434); RBC 4.78 M/mm3 (4.00-5.60); RDW 16.2 % (11.9-15.9); WHITE BLOOD COUNT 5.2 K/mm3 (4.0-10.0)
[2020-06-12] MEDS: PRENATAL VITAMINS W/ FOLIC ACID TABLET (FP) PO SCH (10:39)
[2020-06-12] MEDS: NICOTINE 14 MG/24 HOURS TOPICAL PATCH TD SCH (10:40)
[2020-06-12 11:00] LABS: POTASSIUM 4.2 mmol/L (3.5-5.1)
[2020-06-12 11:02] LABS: CALCIUM 8.8 mg/dL (8.5-10.1)
[2020-06-12 11:03] LABS: ALBUMIN 3.5 g/dl (3.4-5.0); BLOOD UREA NITROGEN 18.3 mg/dL (7-18)
[2020-06-12 11:06] LABS: CREATININE 1.6 mg/dL (0.55-1.3)
[2020-06-12 11:07] LABS: BILIRUBIN,TOTAL 0.6 mg/dL (0.2-1); TOT PROT 6.9 g/dl (6.4-8.2)
[2020-06-12] MEDS: MELATONIN 5 MG TABLETS PO SCH (22:53)
[2020-06-12] MEDS: THIAMINE HCL 100 MG TABLET (FP) PO SCH (22:53)
[2020-06-13] MEDS: chlordiazePOXIDE HCL 25 MG CAPSULE PO SCH ×4 (06:01→22:39)
[2020-06-13] MEDS: INSULIN SLIDING SCALE (NOVOLOG) 1 VIAL SQ SCH ×2 (07:00→18:47)
[2020-06-13] MEDS: PRENATAL VITAMINS W/ FOLIC ACID TABLET (FP) PO SCH (10:30)
[2020-06-13] MEDS: NICOTINE 14 MG/24 HOURS TOPICAL PATCH TD SCH (10:44)
[2020-06-13] MEDS: amLODIPine BESYLATE 5 MG TABLET (FP) PO SCH (15:52)
[2020-06-13] MEDS: MELATONIN 5 MG TABLETS PO SCH (22:39)
[2020-06-13] MEDS: THIAMINE HCL 100 MG TABLET (FP) PO SCH (22:39)
[2020-06-14] MEDS ORDERED: chlordiazePOXIDE HCL 10 MG CAPSULE PO PRN
[2020-06-14] MEDS: chlordiazePOXIDE HCL 10 MG CAPSULE PO SCH ×4 (05:54→22:59)
[2020-06-14] MEDS: INSULIN SLIDING SCALE (NOVOLOG) 1 VIAL SQ SCH ×2 (06:03→18:08)
[2020-06-14] MEDS: amLODIPine BESYLATE 5 MG TABLET (FP) PO SCH (12:17)
[2020-06-14] MEDS: PRENATAL VITAMINS W/ FOLIC ACID TABLET (FP) PO SCH (12:18)
[2020-06-14] MEDS: NICOTINE 14 MG/24 HOURS TOPICAL PATCH TD SCH (12:19)
[2020-06-14] MEDS: MELATONIN 5 MG TABLETS PO SCH (22:59)
[2020-06-14] MEDS: THIAMINE HCL 100 MG TABLET (FP) PO SCH (22:59)
[2020-06-15] MEDS: INSULIN SLIDING SCALE (NOVOLOG) 1 VIAL SQ SCH ×2 (06:24→20:17)
[2020-06-15] MEDS: chlordiazePOXIDE HCL 10 MG CAPSULE PO SCH ×2 (06:24→19:43)
[2020-06-15] MEDS: amLODIPine BESYLATE 5 MG TABLET (FP) PO SCH (10:27)
[2020-06-15] MEDS: NICOTINE 14 MG/24 HOURS TOPICAL PATCH TD SCH (10:27)
[2020-06-15] MEDS: PRENATAL VITAMINS W/ FOLIC ACID TABLET (FP) PO SCH (10:27)
[2020-06-15] MEDS: THIAMINE HCL 100 MG TABLET (FP) PO SCH (22:54)
[2020-06-15] MEDS: MELATONIN 5 MG TABLETS PO SCH (22:54)
[2020-06-16] MEDS ORDERED: chlordiazePOXIDE HCL 10 MG CAPSULE PO ONE (05:00)
[2020-06-16] MEDS: INSULIN SLIDING SCALE (NOVOLOG) 1 VIAL SQ SCH (07:46)
[2020-06-16 09:07] VITALS: BP 143/75; PULSE 110; TEMP 96.9
== END 2020-06-16 09:14 | disposition home or self-care (01) | DRG 775 ==
LOC: YASAS 16:57 → Y3N 22:26
PROVIDERS: ADMIT Allergy & Immunology; ATTEND Allergy & Immunology
PROC: HZ2ZZZZ Detoxification Services for Substance Abuse Treatment (ICD-10-PCS; principal; 2020-06-11)
DX: F10.230 Alcohol dependence with withdrawal, uncomplicated (principal); F12.20 Cannabis dependence, uncomplicated; F17.210 Nicotine dependence, cigarettes, uncomplicated; F31.9 Bipolar disorder, unspecified; F43.10 Post-traumatic stress disorder, unspecified; D50.9 Iron deficiency anemia, unspecified; I12.9 Hypertensive chronic kidney disease with stage 1 through stage 4 chronic kidney disease, or unspecified chronic kidney disease; E11.22 Type 2 diabetes mellitus with diabetic chronic kidney disease; E11.65 Type 2 diabetes mellitus with hyperglycemia; N18.9 Chronic kidney disease, unspecified; N17.9 Acute kidney failure, unspecified; Z79.4 Long term (current) use of insulin; Z91.018 Allergy to other foods
CPT/HCPCS: 36415; 80053; 82962; 85027; 86780; 93005; 93010; C9803; U0003

== ENCOUNTER 2020-07-06 15:44 | Inpatient (IN) | payer OTHER ==
[2020-07-06 16:28] VITALS: BMI 35.9
[2020-07-06] MEDS ORDERED: MAGNESIUM HYDROX 2400MG/30ML ORAL SUSPENSION 30 ML CUP PO PRN (18:12)
[2020-07-06] MEDS ORDERED: BISMUTH SUBSALICYLATE 524 MG/30 ML UD PO PRN (18:12)
[2020-07-06] MEDS ORDERED: MAGNESIUM CITRATE 300 ML BOTTLE PO PRN (18:12)
[2020-07-06] MEDS ORDERED: ONDANSETRON *ODT* 4 MG TABLET SL PRN (18:12)
[2020-07-06] MEDS ORDERED: MAG HYDROX/AL HYDROX/SIMETH 30 ML UNIT-DOSE CUP PO PRN (18:12)
[2020-07-06] MEDS ORDERED: IBUPROFEN 400 MG TABLET (FP) PO PRN (18:12)
[2020-07-06] MEDS ORDERED: MENTHOL/PHENOL 1 EACH UD MM PRN (18:12)
[2020-07-06] MEDS ORDERED: ACETAMINOPHEN 325 MG TABLET (FP) PO PRN ×2 (18:12)
[2020-07-06] MEDS ORDERED: cloNIDine HCL 0.1 MG TABLET PO PRN (18:14)
[2020-07-06] MEDS ORDERED: chlordiazePOXIDE HCL 25 MG CAPSULE PO PRN (18:15)
[2020-07-06] MEDS: hydrOXYzine PAMOATE 25 MG CAPSULE (FP) PO SCH (22:33)
[2020-07-06] MEDS: METHOCARBAMOL 500 MG TABLET PO SCH (22:33)
[2020-07-06] MEDS: THIAMINE HCL 100 MG TABLET (FP) PO SCH (22:33)
[2020-07-06] MEDS: MELATONIN 5 MG TABLETS PO SCH (22:33)
[2020-07-06] MEDS: chlordiazePOXIDE HCL 25 MG CAPSULE PO SCH (22:33)
[2020-07-07] MEDS: METHOCARBAMOL 500 MG TABLET PO SCH ×6 (04:49→23:38)
[2020-07-07] MEDS: hydrOXYzine PAMOATE 25 MG CAPSULE (FP) PO SCH ×5 (07:03→23:31)
[2020-07-07] MEDS: chlordiazePOXIDE HCL 25 MG CAPSULE PO SCH ×4 (07:03→23:30)
[2020-07-07] MEDS: INSULIN SLIDING SCALE (NOVOLOG) 1 VIAL SQ SCH ×3 (07:17→18:15)
[2020-07-07] MEDS: PRENATAL VITAMINS W/ FOLIC ACID TABLET (FP) PO SCH (10:53)
[2020-07-07] MEDS: MELATONIN 5 MG TABLETS PO SCH (23:29)
[2020-07-07] MEDS: THIAMINE HCL 100 MG TABLET (FP) PO SCH (23:30)
[2020-07-08] MEDS: chlordiazePOXIDE HCL 25 MG CAPSULE PO SCH ×4 (06:06→23:15)
[2020-07-08] MEDS: hydrOXYzine PAMOATE 25 MG CAPSULE (FP) PO SCH ×5 (06:07→23:15)
[2020-07-08] MEDS: METHOCARBAMOL 500 MG TABLET PO SCH ×4 (06:07→23:48)
[2020-07-08] MEDS: INSULIN SLIDING SCALE (NOVOLOG) 1 VIAL SQ SCH ×2 (06:25→17:30)
[2020-07-08] MEDS: PRENATAL VITAMINS W/ FOLIC ACID TABLET (FP) PO SCH (11:00)
[2020-07-08] MEDS: MELATONIN 5 MG TABLETS PO SCH (23:15)
[2020-07-08] MEDS: THIAMINE HCL 100 MG TABLET (FP) PO SCH (23:15)
[2020-07-09] MEDS ORDERED: chlordiazePOXIDE HCL 10 MG CAPSULE PO PRN
[2020-07-09] MEDS: METHOCARBAMOL 500 MG TABLET PO SCH ×3 (06:54→18:35)
[2020-07-09] MEDS: hydrOXYzine PAMOATE 25 MG CAPSULE (FP) PO SCH (06:54)
[2020-07-09] MEDS: chlordiazePOXIDE HCL 10 MG CAPSULE PO SCH ×4 (06:54→23:01)
[2020-07-09] MEDS: INSULIN SLIDING SCALE (NOVOLOG) 1 VIAL SQ SCH ×2 (08:03→18:37)
[2020-07-09] MEDS: PRENATAL VITAMINS W/ FOLIC ACID TABLET (FP) PO SCH (10:44)
[2020-07-09] MEDS: THIAMINE HCL 100 MG TABLET (FP) PO SCH (23:01)
[2020-07-09] MEDS: MELATONIN 5 MG TABLETS PO SCH (23:01)
[2020-07-10] MEDS: INSULIN SLIDING SCALE (NOVOLOG) 1 VIAL SQ SCH ×2 (06:42→16:48)
[2020-07-10] MEDS: chlordiazePOXIDE HCL 10 MG CAPSULE PO SCH ×2 (06:44→16:50)
[2020-07-10] MEDS: METHOCARBAMOL 500 MG TABLET PO SCH ×4 (06:45→18:46)
[2020-07-10] MEDS: PRENATAL VITAMINS W/ FOLIC ACID TABLET (FP) PO SCH (11:35)
[2020-07-10] MEDS: NICOTINE POLACRILEX 2 MG GUM BUC PRN (18:46)
[2020-07-10] MEDS: MELATONIN 5 MG TABLETS PO SCH (22:38)
[2020-07-10] MEDS: THIAMINE HCL 100 MG TABLET (FP) PO SCH (22:39)
[2020-07-11] MEDS: METHOCARBAMOL 500 MG TABLET PO SCH ×5 (02:09→23:29)
[2020-07-11] MEDS ORDERED: chlordiazePOXIDE HCL 10 MG CAPSULE PO ONE (05:00)
[2020-07-11] MEDS: INSULIN SLIDING SCALE (NOVOLOG) 1 VIAL SQ SCH ×2 (06:41→17:25)
[2020-07-11] MEDS: PRENATAL VITAMINS W/ FOLIC ACID TABLET (FP) PO SCH (10:33)
[2020-07-11] MEDS: NICOTINE POLACRILEX 2 MG GUM BUC PRN ×2 (13:23→22:38)
[2020-07-11] MEDS ORDERED: amLODIPine BESYLATE 5 MG TABLET (FP) PO SCH (13:45)
[2020-07-11] MEDS: THIAMINE HCL 100 MG TABLET (FP) PO SCH (22:21)
[2020-07-11] MEDS: MELATONIN 5 MG TABLETS PO SCH (22:53)
[2020-07-12] MEDS: METHOCARBAMOL 500 MG TABLET PO SCH (05:52)
[2020-07-12] MEDS: INSULIN SLIDING SCALE (NOVOLOG) 1 VIAL SQ SCH (07:37)
[2020-07-12 09:27] VITALS: BP 154/74; PULSE 92; TEMP 96.6
== END 2020-07-12 10:38 | disposition home or self-care (01) | DRG 773 ==
LOC: YASAS 15:44 → Y3N 21:07
PROVIDERS: ADMIT Allergy & Immunology; ATTEND Allergy & Immunology
PROC: HZ2ZZZZ Detoxification Services for Substance Abuse Treatment (ICD-10-PCS; principal; 2020-07-06)
DX: F10.230 Alcohol dependence with withdrawal, uncomplicated (principal); F11.20 Opioid dependence, uncomplicated; F14.20 Cocaine dependence, uncomplicated; F12.20 Cannabis dependence, uncomplicated; F17.210 Nicotine dependence, cigarettes, uncomplicated; F31.9 Bipolar disorder, unspecified; F43.10 Post-traumatic stress disorder, unspecified; I12.9 Hypertensive chronic kidney disease with stage 1 through stage 4 chronic kidney disease, or unspecified chronic kidney disease; N17.9 Acute kidney failure, unspecified; E11.65 Type 2 diabetes mellitus with hyperglycemia; Z79.4 Long term (current) use of insulin; K21.9 Gastro-esophageal reflux disease without esophagitis; Z91.018 Allergy to other foods
CPT/HCPCS: 82962; C9803; J0735; U0003

== ENCOUNTER 2020-08-06 16:36 | Inpatient (IN) | payer OTHER ==
[2020-08-06 18:08] VITALS: BMI 33.0
[2020-08-06] MEDS ORDERED: MAGNESIUM HYDROX 2400MG/30ML ORAL SUSPENSION 30 ML CUP PO PRN (19:05)
[2020-08-06] MEDS ORDERED: MAGNESIUM CITRATE 300 ML BOTTLE PO PRN (19:05)
[2020-08-06] MEDS ORDERED: ONDANSETRON *ODT* 4 MG TABLET SL PRN (19:05)
[2020-08-06] MEDS ORDERED: chlordiazePOXIDE HCL 25 MG CAPSULE PO PRN (19:05)
[2020-08-06] MEDS ORDERED: IBUPROFEN 400 MG TABLET (FP) PO PRN (19:05)
[2020-08-06] MEDS ORDERED: METHOCARBAMOL 500 MG TABLET PO PRN (19:05)
[2020-08-06] MEDS ORDERED: ACETAMINOPHEN 325 MG TABLET (FP) PO PRN ×2 (19:05)
[2020-08-06] MEDS ORDERED: MENTHOL/PHENOL 1 EACH UD MM PRN (19:05)
[2020-08-06] MEDS ORDERED: MAG HYDROX/AL HYDROX/SIMETH 30 ML UNIT-DOSE CUP PO PRN (19:05)
[2020-08-06] MEDS ORDERED: BISMUTH SUBSALICYLATE 524 MG/30 ML UD PO PRN (19:05)
[2020-08-06] MEDS: THIAMINE HCL 100 MG TABLET (FP) PO SCH (22:52)
[2020-08-06] MEDS: hydrOXYzine PAMOATE 25 MG CAPSULE (FP) PO SCH (22:52)
[2020-08-06] MEDS: MELATONIN 5 MG TABLETS PO SCH (22:52)
[2020-08-06] MEDS: chlordiazePOXIDE HCL 25 MG CAPSULE PO SCH (22:52)
[2020-08-07] MEDS: chlordiazePOXIDE HCL 25 MG CAPSULE PO SCH ×4 (08:01→22:36)
[2020-08-07] MEDS: hydrOXYzine PAMOATE 25 MG CAPSULE (FP) PO SCH ×5 (08:01→22:36)
[2020-08-07] MEDS: PRENATAL VITAMINS W/ FOLIC ACID TABLET (FP) PO SCH (10:21)
[2020-08-07 11:41] LABS: POTASSIUM 3.9 mmol/L (3.5-5.1)
[2020-08-07 11:42] LABS: HEMATOCRIT 36.4 % (35.4-49); HEMOGLOBIN 11.5 GM/dL (11.7-16.9); MCH 23.1 pg (25.7-33.7); MCHC 31.5 g/dl (32.0-35.9); MEAN CELL VOLUME 73.3 fl (80-96); MEAN PLT VOLUME 8.7 fl (7.5-11.1); PLATELET COUNT 207 K/MM3 (134-434); RBC 4.96 M/mm3 (4.00-5.60); RDW 15.5 % (11.9-15.9); WHITE BLOOD COUNT 5.6 K/mm3 (4.0-10.0)
[2020-08-07 11:43] LABS: CALCIUM 8.6 mg/dL (8.5-10.1)
[2020-08-07 11:44] LABS: ALBUMIN 3.3 g/dl (3.4-5.0); BLOOD UREA NITROGEN 14.8 mg/dL (7-18)
[2020-08-07 11:47] LABS: CREATININE 1.4 mg/dL (0.55-1.3)
[2020-08-07 11:49] LABS: BILIRUBIN,TOTAL 0.5 mg/dL (0.2-1); TOT PROT 6.4 g/dl (6.4-8.2)
[2020-08-07] MEDS: MELATONIN 5 MG TABLETS PO SCH (22:36)
[2020-08-07] MEDS: THIAMINE HCL 100 MG TABLET (FP) PO SCH (22:36)
[2020-08-08] MEDS: chlordiazePOXIDE HCL 25 MG CAPSULE PO SCH ×4 (05:29→22:13)
[2020-08-08] MEDS: hydrOXYzine PAMOATE 25 MG CAPSULE (FP) PO SCH ×5 (05:29→22:12)
[2020-08-08] MEDS: PRENATAL VITAMINS W/ FOLIC ACID TABLET (FP) PO SCH (10:17)
[2020-08-08] MEDS: MELATONIN 5 MG TABLETS PO SCH (22:12)
[2020-08-08] MEDS: THIAMINE HCL 100 MG TABLET (FP) PO SCH (22:12)
[2020-08-09] MEDS ORDERED: chlordiazePOXIDE HCL 10 MG CAPSULE PO PRN
[2020-08-09] MEDS: chlordiazePOXIDE HCL 10 MG CAPSULE PO SCH ×4 (05:29→22:22)
[2020-08-09] MEDS: hydrOXYzine PAMOATE 25 MG CAPSULE (FP) PO SCH ×4 (05:29→15:13)
[2020-08-09 07:11] LABS: SARS-CoV-2 NAA Not Detected (Not Detected)
[2020-08-09] MEDS: PRENATAL VITAMINS W/ FOLIC ACID TABLET (FP) PO SCH (10:22)
[2020-08-09] MEDS ORDERED: hydrOXYzine PAMOATE 25 MG CAPSULE (FP) PO PRN (15:49)
[2020-08-09] MEDS: NICOTINE POLACRILEX 2 MG GUM BUC PRN (17:19)
[2020-08-09] MEDS: INSULIN SLIDING SCALE (NOVOLOG) 1 VIAL SQ SCH ×2 (17:22→22:25)
[2020-08-09] MEDS: THIAMINE HCL 100 MG TABLET (FP) PO SCH (22:23)
[2020-08-09] MEDS: MELATONIN 5 MG TABLETS PO SCH (22:25)
[2020-08-10] MEDS: chlordiazePOXIDE HCL 10 MG CAPSULE PO SCH ×2 (05:51→17:05)
[2020-08-10] MEDS: INSULIN SLIDING SCALE (NOVOLOG) 1 VIAL SQ SCH ×4 (06:49→21:47)
[2020-08-10] MEDS: PRENATAL VITAMINS W/ FOLIC ACID TABLET (FP) PO SCH (10:03)
[2020-08-10] MEDS ORDERED: MASKS NR ONE (11:41)
[2020-08-10] MEDS: NICOTINE POLACRILEX 2 MG GUM BUC PRN (19:16)
[2020-08-10] MEDS: MELATONIN 5 MG TABLETS PO SCH (21:46)
[2020-08-10] MEDS: THIAMINE HCL 100 MG TABLET (FP) PO SCH (21:47)
[2020-08-11] MEDS ORDERED: chlordiazePOXIDE HCL 10 MG CAPSULE PO ONE (05:00)
[2020-08-11] MEDS: INSULIN SLIDING SCALE (NOVOLOG) 1 VIAL SQ SCH (07:13)
[2020-08-11 08:49] VITALS: BP 138/76; PULSE 111; TEMP 96.9
== END 2020-08-11 08:46 | disposition home or self-care (01) | DRG 774 ==
LOC: YASAS 16:36 → Y3N 19:40
PROVIDERS: ADMIT Allergy & Immunology; ATTEND Allergy & Immunology
PROC: HZ2ZZZZ Detoxification Services for Substance Abuse Treatment (ICD-10-PCS; principal; 2020-08-06)
DX: F10.230 Alcohol dependence with withdrawal, uncomplicated (principal); F14.20 Cocaine dependence, uncomplicated; F17.210 Nicotine dependence, cigarettes, uncomplicated; F31.9 Bipolar disorder, unspecified; F43.10 Post-traumatic stress disorder, unspecified; I10 Essential (primary) hypertension; E11.9 Type 2 diabetes mellitus without complications; Z79.4 Long term (current) use of insulin; M10.9 Gout, unspecified; I69.898 Other sequelae of other cerebrovascular disease; R26.89 Other abnormalities of gait and mobility
CPT/HCPCS: 36415; 80053; 82962; 85027; 86780; C9803; U0003; U0005

== ENCOUNTER 2020-10-13 13:28 | Inpatient (IN) | payer OTHER ==
[2020-10-13 14:23] VITALS: BMI 32.5
[2020-10-13] MEDS ORDERED: MAG HYDROX/AL HYDROX/SIMETH 30 ML UNIT-DOSE CUP PO PRN (15:00)
[2020-10-13] MEDS ORDERED: LORazepam 1 MG TABLET PO PRN (15:00)
[2020-10-13] MEDS ORDERED: ONDANSETRON *ODT* 4 MG TABLET SL PRN (15:00)
[2020-10-13] MEDS ORDERED: BISMUTH SUBSALICYLATE 524 MG/30 ML PO PRN (15:00)
[2020-10-13] MEDS ORDERED: MAGNESIUM HYDROX 2400MG/30ML ORAL SUSPENSION 30 ML CUP PO PRN (15:00)
[2020-10-13] MEDS ORDERED: MENTHOL/PHENOL 1 EACH UD MM PRN (15:00)
[2020-10-13] MEDS ORDERED: METHOCARBAMOL 500 MG TABLET PO PRN (15:00)
[2020-10-13] MEDS ORDERED: ACETAMINOPHEN 325 MG TABLET (FP) PO PRN ×2 (15:00)
[2020-10-13] MEDS ORDERED: MAGNESIUM CITRATE 300 ML BOTTLE PO PRN (15:00)
[2020-10-13] MEDS: NICOTINE 14 MG/24 HOURS TOPICAL PATCH TD SCH (15:54)
[2020-10-13] MEDS: LORazepam 2 MG TABLET PO SCH ×2 (17:55→23:00)
[2020-10-13] MEDS: INSULIN SLIDING SCALE (NOVOLOG) 1 VIAL SQ SCH ×2 (17:57→23:01)
[2020-10-13] MEDS: hydrOXYzine PAMOATE 25 MG CAPSULE (FP) PO SCH ×2 (17:57→23:01)
[2020-10-13] MEDS: THIAMINE HCL 100 MG TABLET (FP) PO SCH (23:00)
[2020-10-13] MEDS: MELATONIN 5 MG TABLETS PO SCH (23:01)
[2020-10-14] MEDS: LORazepam 2 MG TABLET PO SCH ×4 (06:05→22:53)
[2020-10-14] MEDS: hydrOXYzine PAMOATE 25 MG CAPSULE (FP) PO SCH ×5 (06:05→22:54)
[2020-10-14] MEDS: INSULIN SLIDING SCALE (NOVOLOG) 1 VIAL SQ SCH ×4 (06:37→23:00)
[2020-10-14 10:00] LABS: HEMOGLOBIN 11.6 GM/dL (11.7-16.9); MCH 23.8 pg (25.7-33.7); MCHC 32.3 g/dl (32.0-35.9); MEAN CELL VOLUME 73.8 fl (80-96); MEAN PLT VOLUME 8.2 fl (7.5-11.1); PLATELET COUNT 296 K/MM3 (134-434); RBC 4.88 M/mm3 (4.00-5.60); RDW 17.3 % (11.9-15.9); WHITE BLOOD COUNT 6.8 K/mm3 (4.0-10.0)
[2020-10-14 10:09] LABS: BLOOD UREA NITROGEN 13.8 mg/dL (7-18)
[2020-10-14 10:10] LABS: BILIRUBIN,TOTAL 0.4 mg/dL (0.2-1); CREATININE 1.7 mg/dL (0.55-1.3)
[2020-10-14 10:11] LABS: TOT PROT 7.3 g/dl (6.4-8.2)
[2020-10-14 10:12] LABS: ALBUMIN 3.8 g/dl (3.4-5.0); CALCIUM 9.1 mg/dL (8.5-10.1)
[2020-10-14] MEDS: PRENATAL VITAMINS W/ FOLIC ACID TABLET (FP) PO SCH (10:47)
[2020-10-14] MEDS: NICOTINE 14 MG/24 HOURS TOPICAL PATCH TD SCH (10:48)
[2020-10-14 10:58] LABS: HIV INTERPRETATION NEGATIVE (NEGATIVE)
[2020-10-14] MEDS: THIAMINE HCL 100 MG TABLET (FP) PO SCH (22:54)
[2020-10-14] MEDS: MELATONIN 5 MG TABLETS PO SCH (22:54)
[2020-10-15] MEDS: LORazepam 1 MG TABLET PO SCH ×4 (05:20→23:02)
[2020-10-15] MEDS: hydrOXYzine PAMOATE 25 MG CAPSULE (FP) PO SCH ×5 (05:20→23:03)
[2020-10-15] MEDS: INSULIN SLIDING SCALE (NOVOLOG) 1 VIAL SQ SCH ×4 (06:33→22:50)
[2020-10-15] MEDS: NICOTINE 14 MG/24 HOURS TOPICAL PATCH TD SCH (10:15)
[2020-10-15] MEDS: PRENATAL VITAMINS W/ FOLIC ACID TABLET (FP) PO SCH (10:15)
[2020-10-15] MEDS: IBUPROFEN 400 MG TABLET (FP) PO PRN (17:45)
[2020-10-15] MEDS: NICOTINE POLACRILEX 2 MG GUM BUC PRN (19:10)
[2020-10-15] MEDS: MELATONIN 5 MG TABLETS PO SCH (23:02)
[2020-10-15] MEDS: THIAMINE HCL 100 MG TABLET (FP) PO SCH (23:03)
[2020-10-16] MEDS ORDERED: LORazepam 0.5 MG TABLET PO PRN
[2020-10-16] MEDS: IBUPROFEN 400 MG TABLET (FP) PO PRN ×2 (02:32→10:17)
[2020-10-16] MEDS: LORazepam 0.5 MG TABLET PO SCH ×4 (05:55→23:00)
[2020-10-16] MEDS: hydrOXYzine PAMOATE 25 MG CAPSULE (FP) PO SCH ×5 (05:55→22:59)
[2020-10-16] MEDS: INSULIN SLIDING SCALE (NOVOLOG) 1 VIAL SQ SCH ×4 (08:11→22:59)
[2020-10-16] MEDS: PRENATAL VITAMINS W/ FOLIC ACID TABLET (FP) PO SCH (10:17)
[2020-10-16] MEDS: NICOTINE 14 MG/24 HOURS TOPICAL PATCH TD SCH (10:19)
[2020-10-16] MEDS: MELATONIN 5 MG TABLETS PO SCH (22:58)
[2020-10-16] MEDS: THIAMINE HCL 100 MG TABLET (FP) PO SCH (23:00)
[2020-10-17] MEDS ORDERED: LORazepam 0.5 MG TABLET PO ONE (05:00)
[2020-10-17] MEDS: hydrOXYzine PAMOATE 25 MG CAPSULE (FP) PO SCH ×5 (05:26→22:50)
[2020-10-17] MEDS: INSULIN SLIDING SCALE (NOVOLOG) 1 VIAL SQ SCH ×4 (07:07→22:50)
[2020-10-17] MEDS: PRENATAL VITAMINS W/ FOLIC ACID TABLET (FP) PO SCH (11:06)
[2020-10-17] MEDS: NICOTINE 14 MG/24 HOURS TOPICAL PATCH TD SCH (11:07)
[2020-10-17] MEDS ORDERED: INSULIN (NOVOLOG) ASPART 100 UNITS/ML 10ML VIAL ONE (11:10)
[2020-10-17] MEDS: NICOTINE POLACRILEX 2 MG GUM BUC PRN (11:10)
[2020-10-17] MEDS: amLODIPine BESYLATE 5 MG TABLET (FP) PO SCH (13:24)
[2020-10-17] MEDS: THIAMINE HCL 100 MG TABLET (FP) PO SCH (22:50)
[2020-10-17] MEDS: MELATONIN 5 MG TABLETS PO SCH (22:50)
[2020-10-18] MEDS: INSULIN SLIDING SCALE (NOVOLOG) 1 VIAL SQ SCH ×2 (06:18→10:21)
[2020-10-18] MEDS: hydrOXYzine PAMOATE 25 MG CAPSULE (FP) PO SCH ×2 (06:18→10:21)
[2020-10-18 09:15] VITALS: BP 143/69; PULSE 77; TEMP 96.9
[2020-10-18] MEDS: PRENATAL VITAMINS W/ FOLIC ACID TABLET (FP) PO SCH (10:19)
[2020-10-18] MEDS: NICOTINE 14 MG/24 HOURS TOPICAL PATCH TD SCH (10:20)
[2020-10-18] MEDS: amLODIPine BESYLATE 5 MG TABLET (FP) PO SCH (10:20)
== END 2020-10-18 11:06 | disposition other institution (70) | DRG 774 ==
LOC: YASAS 13:28 → Y6N 14:43
PROVIDERS: ADMIT Allergy & Immunology; ATTEND Allergy & Immunology
PROC: HZ2ZZZZ Detoxification Services for Substance Abuse Treatment (ICD-10-PCS; principal; 2020-10-13)
DX: F10.230 Alcohol dependence with withdrawal, uncomplicated (principal); F14.20 Cocaine dependence, uncomplicated; F17.213 Nicotine dependence, cigarettes, with withdrawal; F31.9 Bipolar disorder, unspecified; D64.9 Anemia, unspecified; I10 Essential (primary) hypertension; E11.9 Type 2 diabetes mellitus without complications; M10.9 Gout, unspecified; R79.89 Other specified abnormal findings of blood chemistry; E66.9 Obesity, unspecified; Z68.32 Body mass index [BMI] 32.0-32.9, adult; Z86.73 Personal history of transient ischemic attack (TIA), and cerebral infarction without residual deficits; Z91.018 Allergy to other foods; Z56.0 Unemployment, unspecified; Z59.0 Homelessness
CPT/HCPCS: 36415; 80053; 82962; 85027; 86780; 87389; C9803; U0003; U0005

== ENCOUNTER 2021-01-12 14:56 | Inpatient (IN) | payer OTHER ==
[2021-01-12 20:03] VITALS: BMI 31.1
[2021-01-12] MEDS ORDERED: IBUPROFEN 400 MG TABLET (FP) PO PRN (20:24)
[2021-01-12] MEDS ORDERED: MAG HYDROX/AL HYDROX/SIMETH 30 ML UNIT-DOSE CUP PO PRN (20:24)
[2021-01-12] MEDS ORDERED: BISMUTH SUBSALICYLATE 524 MG/30 ML PO PRN (20:24)
[2021-01-12] MEDS ORDERED: MAGNESIUM HYDROX 2400MG/30ML ORAL SUSPENSION 30 ML CUP PO PRN (20:24)
[2021-01-12] MEDS ORDERED: METHOCARBAMOL 500 MG TABLET PO PRN (20:24)
[2021-01-12] MEDS ORDERED: MENTHOL/PHENOL 1 EACH UD MM PRN (20:24)
[2021-01-12] MEDS ORDERED: ACETAMINOPHEN 325 MG TABLET (FP) PO PRN ×2 (20:24)
[2021-01-12] MEDS ORDERED: ONDANSETRON *ODT* 4 MG TABLET SL PRN (20:24)
[2021-01-12] MEDS ORDERED: MAGNESIUM CITRATE 300 ML BOTTLE PO PRN (20:24)
[2021-01-12] MEDS ORDERED: diazePAM 5 MG TABLET PO ONE (20:26)
[2021-01-12] MEDS ORDERED: diazePAM 5 MG TABLET PO PRN (20:26)
[2021-01-12] MEDS ORDERED: methaDONE HCL 10 MG TABLET (FOR DETOX USE ONLY) PO ONE (20:29)
[2021-01-12] MEDS: amLODIPine BESYLATE 5 MG TABLET (FP) PO SCH (22:42)
[2021-01-12] MEDS: hydrOXYzine PAMOATE 25 MG CAPSULE (FP) PO PRN (22:42)
[2021-01-12] MEDS: MELATONIN 5 MG TABLETS PO SCH (22:43)
[2021-01-12] MEDS: THIAMINE HCL 100 MG TABLET (FP) PO SCH (22:43)
[2021-01-12] MEDS: diazePAM 5 MG TABLET PO SCH (22:44)
[2021-01-13] MEDS: diazePAM 5 MG TABLET PO SCH ×3 (06:36→17:08)
[2021-01-13] MEDS: NICOTINE POLACRILEX 2 MG GUM BUC PRN ×2 (06:41→11:25)
[2021-01-13] MEDS ORDERED: methaDONE HCL 10 MG TABLET (FOR DETOX USE ONLY) PO ONE (10:00)
[2021-01-13] MEDS: PRENATAL VITAMINS W/ FOLIC ACID TABLET (FP) PO SCH (10:22)
[2021-01-13] MEDS: amLODIPine BESYLATE 5 MG TABLET (FP) PO SCH (10:22)
[2021-01-13 12:11] LABS: HEMATOCRIT 36.6 % (35.4-49); HEMOGLOBIN 11.7 GM/dL (11.7-16.9); MEAN CELL VOLUME 74.8 fl (80-96); MEAN PLT VOLUME 8.3 fl (7.5-11.1); PLATELET COUNT 278 10^3/uL (134-434); RDW 15.5 % (11.9-15.9); WHITE BLOOD COUNT 6.1 K/mm3 (4.0-10.0)
[2021-01-13 12:17] LABS: CALCIUM 8.8 mg/dL (8.5-10.1)
[2021-01-13 12:18] LABS: ALBUMIN 3.3 g/dl (3.4-5.0); BLOOD UREA NITROGEN 12.9 mg/dL (7-18)
[2021-01-13 12:21] LABS: CREATININE 1.3 mg/dL (0.55-1.3)
[2021-01-13 12:23] LABS: BILIRUBIN,TOTAL 1.1 mg/dL (0.2-1); TOT PROT 6.7 g/dl (6.4-8.2)
[2021-01-14] MEDS: MELATONIN 5 MG TABLETS PO SCH ×2 (00:11→23:01)
[2021-01-14] MEDS: diazePAM 5 MG TABLET PO SCH ×4 (00:11→23:06)
[2021-01-14] MEDS: THIAMINE HCL 100 MG TABLET (FP) PO SCH ×2 (00:11→23:06)
[2021-01-14] MEDS: cloNIDine HCL 0.1 MG TABLET PO PRN ×2 (07:13→10:53)
[2021-01-14] MEDS ORDERED: methaDONE HCL 10 MG TABLET (FOR DETOX USE ONLY) PO ONE (10:00)
[2021-01-14] MEDS: amLODIPine BESYLATE 5 MG TABLET (FP) PO SCH (10:53)
[2021-01-14] MEDS: PRENATAL VITAMINS W/ FOLIC ACID TABLET (FP) PO SCH (10:57)
[2021-01-15] MEDS: diazePAM 5 MG TABLET PO SCH ×2 (06:01→18:12)
[2021-01-15] MEDS: PRENATAL VITAMINS W/ FOLIC ACID TABLET (FP) PO SCH (10:45)
[2021-01-15] MEDS: amLODIPine BESYLATE 5 MG TABLET (FP) PO SCH (10:45)
[2021-01-15] MEDS: hydrOXYzine PAMOATE 25 MG CAPSULE (FP) PO PRN (10:46)
[2021-01-15] MEDS: NICOTINE POLACRILEX 2 MG GUM BUC PRN (14:45)
[2021-01-15] MEDS ORDERED: amLODIPine BESYLATE 5 MG TABLET (FP) PO ONE (17:17)
[2021-01-15] MEDS: MELATONIN 5 MG TABLETS PO SCH (23:03)
[2021-01-15] MEDS: THIAMINE HCL 100 MG TABLET (FP) PO SCH (23:03)
[2021-01-16] MEDS ORDERED: diazePAM 5 MG TABLET PO ONE (06:00)
[2021-01-16] MEDS: NICOTINE POLACRILEX 2 MG GUM BUC PRN (07:33)
[2021-01-16] MEDS: amLODIPine BESYLATE 5 MG TABLET (FP) PO SCH (10:20)
[2021-01-16] MEDS: PRENATAL VITAMINS W/ FOLIC ACID TABLET (FP) PO SCH (10:20)
[2021-01-16 10:32] VITALS: BP 147/89; PULSE 96; TEMP 97.1
== END 2021-01-16 09:41 | disposition other institution (70) | DRG 773 ==
LOC: YASAS 14:56 → Y6N 21:00
PROVIDERS: ADMIT Allergy & Immunology; ATTEND Allergy & Immunology
PROC: HZ2ZZZZ Detoxification Services for Substance Abuse Treatment (ICD-10-PCS; principal; 2021-01-12)
DX: F11.23 Opioid dependence with withdrawal (principal); F10.230 Alcohol dependence with withdrawal, uncomplicated; F14.20 Cocaine dependence, uncomplicated; F12.20 Cannabis dependence, uncomplicated; F17.210 Nicotine dependence, cigarettes, uncomplicated; F32.9 Major depressive disorder, single episode, unspecified; F43.10 Post-traumatic stress disorder, unspecified; E11.9 Type 2 diabetes mellitus without complications; I10 Essential (primary) hypertension; M10.9 Gout, unspecified; R74.01 Elevation of levels of liver transaminase levels; Z62.810 Personal history of physical and sexual abuse in childhood; E66.9 Obesity, unspecified; Z68.31 Body mass index [BMI] 31.0-31.9, adult; Z86.73 Personal history of transient ischemic attack (TIA), and cerebral infarction without residual deficits; Z91.018 Allergy to other foods; Z91.013 Allergy to seafood; R22.0 Localized swelling, mass and lump, head; W06.XXXA Fall from bed, initial encounter; Y92.230 Patient room in hospital as the place of occurrence of the external cause
CPT/HCPCS: 36415; 80053; 82962; 85027; 86780; C9803; J0735; U0003; U0005

== ENCOUNTER 2021-02-21 15:31 | Inpatient (IN) | payer OTHER ==
[2021-02-21] MEDS ORDERED: MENTHOL/PHENOL 1 EACH UD MM PRN (21:10)
[2021-02-21] MEDS ORDERED: MAGNESIUM HYDROX 2400MG/30ML ORAL SUSPENSION 30 ML CUP PO PRN (21:10)
[2021-02-21] MEDS ORDERED: METHOCARBAMOL 500 MG TABLET PO PRN (21:10)
[2021-02-21] MEDS ORDERED: BISMUTH SUBSALICYLATE 524 MG/30 ML PO PRN (21:10)
[2021-02-21] MEDS ORDERED: ONDANSETRON *ODT* 4 MG TABLET SL PRN (21:10)
[2021-02-21] MEDS ORDERED: MAGNESIUM CITRATE 300 ML BOTTLE PO PRN (21:10)
[2021-02-21] MEDS ORDERED: MAG HYDROX/AL HYDROX/SIMETH 30 ML UNIT-DOSE CUP PO PRN (21:10)
[2021-02-21] MEDS ORDERED: IBUPROFEN 400 MG TABLET (FP) PO PRN (21:10)
[2021-02-21] MEDS ORDERED: ACETAMINOPHEN 325 MG TABLET (FP) PO PRN ×2 (21:10)
[2021-02-21] MEDS ORDERED: LORazepam 1 MG TABLET PO PRN (21:13)
[2021-02-21 22:59] VITALS: BMI 32.5
[2021-02-22] MEDS: MELATONIN 5 MG TABLETS PO SCH ×2 (01:48→22:41)
[2021-02-22] MEDS: LORazepam 2 MG TABLET PO SCH ×5 (01:48→22:41)
[2021-02-22] MEDS: THIAMINE HCL 100 MG TABLET (FP) PO SCH ×2 (01:48→22:41)
[2021-02-22] MEDS: NICOTINE 14 MG/24 HOURS TOPICAL PATCH TD SCH (11:11)
[2021-02-22] MEDS: PRENATAL VITAMINS W/ FOLIC ACID TABLET (FP) PO SCH (11:12)
[2021-02-22] MEDS: NICOTINE POLACRILEX 2 MG GUM BUC PRN ×2 (14:32→17:58)
[2021-02-22] MEDS: amLODIPine BESYLATE 10 MG TABLET (FP) PO SCH (14:37)
[2021-02-22 16:53] LABS: ALBUMIN 3.4 g/dl (3.4-5.0); CALCIUM 9.1 mg/dL (8.5-10.1)
[2021-02-22 16:57] LABS: CREATININE 1.3 mg/dL (0.55-1.3)
[2021-02-22 16:58] LABS: TOT PROT 7.2 g/dl (6.4-8.2)
[2021-02-22 17:10] LABS: HEMATOCRIT 37.5 % (35.4-49); HEMOGLOBIN 12.2 GM/dL (11.7-16.9); MCH 23.7 pg (25.7-33.7); MCHC 32.4 g/dl (32.0-35.9); MEAN CELL VOLUME 72.9 fl (80-96); MEAN PLT VOLUME 8.4 fl (7.5-11.1); PLATELET COUNT 318 10^3/uL (134-434); RBC 5.14 M/mm3 (4.00-5.60); RDW 15.9 % (11.9-15.9); WHITE BLOOD COUNT 6.5 K/mm3 (4.0-10.0)
[2021-02-23] MEDS: LORazepam 1 MG TABLET PO SCH ×4 (06:18→22:57)
[2021-02-23] MEDS: PRENATAL VITAMINS W/ FOLIC ACID TABLET (FP) PO SCH (10:44)
[2021-02-23] MEDS: NICOTINE 14 MG/24 HOURS TOPICAL PATCH TD SCH (10:44)
[2021-02-23] MEDS: amLODIPine BESYLATE 10 MG TABLET (FP) PO SCH (10:44)
[2021-02-23] MEDS: MELATONIN 5 MG TABLETS PO SCH (22:56)
[2021-02-23] MEDS: THIAMINE HCL 100 MG TABLET (FP) PO SCH (22:56)
[2021-02-24] MEDS ORDERED: LORazepam 0.5 MG TABLET PO PRN
[2021-02-24] MEDS: LORazepam 0.5 MG TABLET PO SCH ×4 (06:22→22:46)
[2021-02-24] MEDS: amLODIPine BESYLATE 10 MG TABLET (FP) PO SCH (10:38)
[2021-02-24] MEDS: NICOTINE 14 MG/24 HOURS TOPICAL PATCH TD SCH (10:38)
[2021-02-24] MEDS: PRENATAL VITAMINS W/ FOLIC ACID TABLET (FP) PO SCH (10:38)
[2021-02-24] MEDS: NICOTINE POLACRILEX 2 MG GUM BUC PRN (10:57)
[2021-02-24] MEDS: MELATONIN 5 MG TABLETS PO SCH (22:46)
[2021-02-24] MEDS: THIAMINE HCL 100 MG TABLET (FP) PO SCH (22:46)
[2021-02-25] MEDS ORDERED: LORazepam 0.5 MG TABLET PO ONE (05:00)
[2021-02-25 06:02] VITALS: BP 107/86; PULSE 71; TEMP 96.8
[2021-02-25] MEDS: NICOTINE POLACRILEX 2 MG GUM BUC PRN (10:32)
[2021-02-25] MEDS: NICOTINE 14 MG/24 HOURS TOPICAL PATCH TD SCH (11:23)
[2021-02-25] MEDS: amLODIPine BESYLATE 10 MG TABLET (FP) PO SCH (11:24)
[2021-02-25] MEDS: PRENATAL VITAMINS W/ FOLIC ACID TABLET (FP) PO SCH (11:24)
== END 2021-02-25 14:14 | disposition home or self-care (01) | DRG 775 ==
LOC: YASAS 15:31 → Y3N 21:10
PROVIDERS: ADMIT Allergy & Immunology; ATTEND Allergy & Immunology
PROC: HZ2ZZZZ Detoxification Services for Substance Abuse Treatment (ICD-10-PCS; principal; 2021-02-21)
DX: F10.230 Alcohol dependence with withdrawal, uncomplicated (principal); F12.20 Cannabis dependence, uncomplicated; F17.210 Nicotine dependence, cigarettes, uncomplicated; F43.10 Post-traumatic stress disorder, unspecified; I10 Essential (primary) hypertension; E11.9 Type 2 diabetes mellitus without complications; M10.9 Gout, unspecified; K21.9 Gastro-esophageal reflux disease without esophagitis; E66.9 Obesity, unspecified; Z68.32 Body mass index [BMI] 32.0-32.9, adult; Z86.73 Personal history of transient ischemic attack (TIA), and cerebral infarction without residual deficits; Z91.013 Allergy to seafood; Z91.018 Allergy to other foods; Z56.0 Unemployment, unspecified; Z59.00 Homelessness unspecified
CPT/HCPCS: 36415; 80053; 85027; 86780; C9803; U0003; U0005

== ENCOUNTER 2021-03-18 13:10 | Inpatient (IN) | payer OTHER ==
[2021-03-18] MEDS ORDERED: MAGNESIUM CITRATE 300 ML BOTTLE PO PRN (13:51)
[2021-03-18] MEDS ORDERED: BISMUTH SUBSALICYLATE 262 MG/15 ML BTL PO PRN (13:51)
[2021-03-18] MEDS ORDERED: IBUPROFEN 400 MG TABLET (FP) PO PRN (13:51)
[2021-03-18] MEDS ORDERED: MAG HYDROX/AL HYDROX/SIMETH 30 ML UNIT-DOSE CUP PO PRN (13:51)
[2021-03-18] MEDS ORDERED: MAGNESIUM HYDROX 2400MG/30ML ORAL SUSPENSION 30 ML CUP PO PRN (13:51)
[2021-03-18] MEDS ORDERED: METHOCARBAMOL 500 MG TABLET PO PRN (13:51)
[2021-03-18] MEDS ORDERED: MENTHOL/PHENOL 1 EACH UD MM PRN (13:51)
[2021-03-18] MEDS ORDERED: ACETAMINOPHEN 325 MG TABLET (FP) PO PRN ×2 (13:51)
[2021-03-18] MEDS ORDERED: diazePAM 5 MG TABLET PO PRN (13:51)
[2021-03-18] MEDS ORDERED: ONDANSETRON *ODT* 4 MG TABLET SL PRN (13:51)
[2021-03-18] MEDS ORDERED: NICOTINE 10 MG CARTRIDGE (INHALER) IH PRN (13:51)
[2021-03-18 14:33] VITALS: BMI 39.3
[2021-03-18 16:57] LABS: HEMATOCRIT 36.6 % (35.4-49); HEMOGLOBIN 11.7 GM/dL (11.7-16.9); MCH 23.5 pg (25.7-33.7); MCHC 31.9 g/dl (32.0-35.9); MEAN CELL VOLUME 73.7 fl (80-96); MEAN PLT VOLUME 8.5 fl (7.5-11.1); PLATELET COUNT 259 10^3/uL (134-434); RBC 4.96 M/mm3 (4.00-5.60); RDW 16.8 % (11.9-15.9); WHITE BLOOD COUNT 6.2 K/mm3 (4.0-10.0)
[2021-03-18 16:59] LABS: ALBUMIN 3.8 g/dl (3.4-5.0); BLOOD UREA NITROGEN 13.7 mg/dL (7-18); CALCIUM 9.2 mg/dL (8.5-10.1)
[2021-03-18] MEDS: hydrOXYzine PAMOATE 25 MG CAPSULE (FP) PO SCH ×3 (16:59→22:42)
[2021-03-18 17:02] LABS: CREATININE 1.3 mg/dL (0.55-1.3)
[2021-03-18] MEDS: diazePAM 5 MG TABLET PO SCH ×2 (17:02→22:42)
[2021-03-18 17:04] LABS: BILIRUBIN,TOTAL 0.6 mg/dL (0.2-1); TOT PROT 7.5 g/dl (6.4-8.2)
[2021-03-18] MEDS: PRENATAL VITAMINS W/ FOLIC ACID TABLET (FP) PO SCH (17:04)
[2021-03-18] MEDS: NICOTINE 14 MG/24 HOURS TOPICAL PATCH TD SCH (17:04)
[2021-03-18] MEDS: THIAMINE HCL 100 MG TABLET (FP) PO SCH (22:41)
[2021-03-18] MEDS: MELATONIN 5 MG TABLETS PO SCH (22:43)
[2021-03-19] MEDS: hydrOXYzine PAMOATE 25 MG CAPSULE (FP) PO SCH ×5 (06:27→22:47)
[2021-03-19] MEDS: diazePAM 5 MG TABLET PO SCH ×4 (06:27→22:46)
[2021-03-19] MEDS ORDERED: amLODIPine BESYLATE 10 MG TABLET (FP) PO SCH (10:00)
[2021-03-19] MEDS: amLODIPine BESYLATE 10 MG TABLET (FP) PO SCH (10:41)
[2021-03-19] MEDS: PRENATAL VITAMINS W/ FOLIC ACID TABLET (FP) PO SCH (10:41)
[2021-03-19] MEDS: NICOTINE 14 MG/24 HOURS TOPICAL PATCH TD SCH (10:42)
[2021-03-19] MEDS: THIAMINE HCL 100 MG TABLET (FP) PO SCH (22:46)
[2021-03-19] MEDS: MELATONIN 5 MG TABLETS PO SCH (22:47)
[2021-03-20] MEDS: diazePAM 5 MG TABLET PO SCH ×3 (06:13→22:28)
[2021-03-20] MEDS: hydrOXYzine PAMOATE 25 MG CAPSULE (FP) PO SCH ×5 (06:13→22:30)
[2021-03-20] MEDS: PRENATAL VITAMINS W/ FOLIC ACID TABLET (FP) PO SCH (10:28)
[2021-03-20] MEDS: NICOTINE 14 MG/24 HOURS TOPICAL PATCH TD SCH (10:29)
[2021-03-20] MEDS: amLODIPine BESYLATE 10 MG TABLET (FP) PO SCH (10:29)
[2021-03-20] MEDS: THIAMINE HCL 100 MG TABLET (FP) PO SCH (22:27)
[2021-03-20] MEDS: MELATONIN 5 MG TABLETS PO SCH (22:30)
[2021-03-21] MEDS: hydrOXYzine PAMOATE 25 MG CAPSULE (FP) PO SCH ×5 (06:10→22:37)
[2021-03-21] MEDS: diazePAM 5 MG TABLET PO SCH ×2 (06:10→17:40)
[2021-03-21] MEDS: amLODIPine BESYLATE 10 MG TABLET (FP) PO SCH (10:33)
[2021-03-21] MEDS: NICOTINE 14 MG/24 HOURS TOPICAL PATCH TD SCH (10:33)
[2021-03-21] MEDS: PRENATAL VITAMINS W/ FOLIC ACID TABLET (FP) PO SCH (10:33)
[2021-03-21] MEDS: MELATONIN 5 MG TABLETS PO SCH (22:37)
[2021-03-21] MEDS: THIAMINE HCL 100 MG TABLET (FP) PO SCH (22:37)
[2021-03-22] MEDS: hydrOXYzine PAMOATE 25 MG CAPSULE (FP) PO SCH ×2 (05:10→10:09)
[2021-03-22] MEDS ORDERED: diazePAM 5 MG TABLET PO ONE (06:00)
[2021-03-22 09:21] VITALS: BP 131/65; PULSE 80; TEMP 97.3
[2021-03-22] MEDS: NICOTINE 14 MG/24 HOURS TOPICAL PATCH TD SCH (10:09)
[2021-03-22] MEDS: amLODIPine BESYLATE 10 MG TABLET (FP) PO SCH (10:09)
[2021-03-22] MEDS: PRENATAL VITAMINS W/ FOLIC ACID TABLET (FP) PO SCH (10:09)
== END 2021-03-22 12:10 | disposition home or self-care (01) | DRG 774 ==
LOC: YASAS 13:10 → Y3N 14:47
PROVIDERS: ADMIT Allergy & Immunology; ATTEND Allergy & Immunology
PROC: HZ2ZZZZ Detoxification Services for Substance Abuse Treatment (ICD-10-PCS; principal; 2021-03-18)
DX: F10.230 Alcohol dependence with withdrawal, uncomplicated (principal); F14.20 Cocaine dependence, uncomplicated; F12.20 Cannabis dependence, uncomplicated; F17.210 Nicotine dependence, cigarettes, uncomplicated; F19.24 Other psychoactive substance dependence with psychoactive substance-induced mood disorder; F31.9 Bipolar disorder, unspecified; F43.10 Post-traumatic stress disorder, unspecified; D64.9 Anemia, unspecified; I10 Essential (primary) hypertension; E11.9 Type 2 diabetes mellitus without complications; M10.9 Gout, unspecified; R73.9 Hyperglycemia, unspecified; E66.9 Obesity, unspecified; Z68.39 Body mass index [BMI] 39.0-39.9, adult; Z86.73 Personal history of transient ischemic attack (TIA), and cerebral infarction without residual deficits; Z56.0 Unemployment, unspecified; Z91.013 Allergy to seafood; Z91.14 Patient's other noncompliance with medication regimen
CPT/HCPCS: 36415; 80053; 82962; 83036; 85027; 86780; C9803; U0003; U0005

== ENCOUNTER 2022-07-26 09:35 | Inpatient (IN) | payer OTHER ==
[2022-07-26 10:34] VITALS: BMI 30.4
[2022-07-26] MEDS ORDERED: MAGNESIUM HYDROX 2400MG/30ML ORAL SUSPENSION 30 ML CUP PO PRN (10:40)
[2022-07-26] MEDS ORDERED: METHOCARBAMOL 500 MG TABLET PO PRN (10:40)
[2022-07-26] MEDS ORDERED: LORazepam 1 MG TABLET PO PRN (10:40)
[2022-07-26] MEDS ORDERED: MAG HYDROX/AL HYDROX/SIMETH 30 ML UNIT-DOSE CUP PO PRN (10:40)
[2022-07-26] MEDS ORDERED: hydrOXYzine PAMOATE 25 MG CAPSULE (FP) PO PRN (10:40)
[2022-07-26] MEDS ORDERED: guaiFENesin 600 MG TABLET.ER (FP) PO PRN (10:40)
[2022-07-26] MEDS ORDERED: BENZOCAINE/MENTHOL (CHLORASEPTIC ) LOZENGE MM PRN (10:40)
[2022-07-26] MEDS ORDERED: BISMUTH SUBSALICYLATE 262 MG/15 ML BTL PO PRN (10:40)
[2022-07-26] MEDS ORDERED: ONDANSETRON *ODT* 4 MG TABLET SL PRN (10:40)
[2022-07-26] MEDS ORDERED: IBUPROFEN 600 MG TABLET (FP) PO PRN (10:40)
[2022-07-26] MEDS ORDERED: BENZONATATE 200 MG CAPSULE PO PRN (10:40)
[2022-07-26] MEDS ORDERED: ACETAMINOPHEN 325 MG TABLET (FP) PO PRN (10:40)
[2022-07-26] MEDS ORDERED: LOPERAMIDE HCL 2 MG CAPSULE PO PRN (10:40)
[2022-07-26] MEDS ORDERED: DICYCLOMINE HCL 10 MG CAPSULE PO PRN (10:40)
[2022-07-26] MEDS ORDERED: IBUPROFEN 400 MG TABLET (FP) PO PRN (10:40)
[2022-07-26] MEDS ORDERED: POLYETHYLENE GLYCOL (HEALTHYLAX) 3350 17 GM PACKET PO PRN (10:40)
[2022-07-26] MEDS ORDERED: NICOTINE 21 MG/24 HOURS TOPICAL PATCH TD PRN (10:40)
[2022-07-26] MEDS ORDERED: NICOTINE 10 MG CARTRIDGE (INHALER) IH PRN (10:40)
[2022-07-26] MEDS ORDERED: amLODIPine BESYLATE 5 MG TABLET (FP) ONE (11:55)
[2022-07-26] MEDS: amLODIPine BESYLATE 10 MG TABLET (FP) PO SCH (11:58)
[2022-07-26] MEDS ORDERED: predniSONE 20 MG TABLET (UD) PO ONE (12:30)
[2022-07-26 17:30] LABS: HEMATOCRIT 34.5 % (35.4-49); HEMOGLOBIN 11.2 GM/dL (11.7-16.9); MCH 23.1 pg (25.7-33.7); MCHC 32.5 g/dl (32.0-35.9); MEAN CELL VOLUME 71.3 fl (80-96); MEAN PLT VOLUME 7.9 fl (7.5-11.1); PLATELET COUNT 265 10^3/uL (134-434); RBC 4.84 M/mm3 (4.00-5.60); RDW 16.3 % (11.9-15.9); WHITE BLOOD COUNT 5.1 K/mm3 (4.0-10.0)
[2022-07-26] MEDS: LORazepam 2 MG TABLET PO SCH ×2 (17:40→22:20)
[2022-07-26] MEDS: NICOTINE POLACRILEX 4 MG GUM BUC PRN ×2 (17:41→22:21)
[2022-07-26 18:06] LABS: CALCIUM 8.8 mg/dL (8.5-10.1)
[2022-07-26 18:07] LABS: ALBUMIN 3.5 g/dl (3.4-5.0); BLOOD UREA NITROGEN 14.7 mg/dL (7-18)
[2022-07-26 18:09] LABS: CREATININE 1.4 mg/dL (0.55-1.3)
[2022-07-26 18:11] LABS: BILIRUBIN,TOTAL 0.4 mg/dL (0.2-1)
[2022-07-26] MEDS: THIAMINE HCL 100 MG TABLET (FP) PO SCH (22:20)
[2022-07-26] MEDS: MELATONIN 5 MG TABLETS PO SCH (22:20)
[2022-07-27] MEDS: LORazepam 2 MG TABLET PO SCH ×4 (05:18→22:43)
[2022-07-27] MEDS ORDERED: predniSONE 20 MG TABLET (UD) PO ONE (10:00)
[2022-07-27] MEDS: PRENATAL VITAMINS W/ FOLIC ACID TABLET (FP) PO SCH (10:36)
[2022-07-27] MEDS: LACTULOSE 20 GM/30 ML UDC (FOR ORAL USE ONLY) PO SCH ×4 (10:36→22:44)
[2022-07-27] MEDS: amLODIPine BESYLATE 10 MG TABLET (FP) PO SCH (10:37)
[2022-07-27] MEDS: LISINOPRIL 10 MG TABLET PO SCH (10:37)
[2022-07-27] MEDS: MELATONIN 5 MG TABLETS PO SCH (22:43)
[2022-07-27] MEDS: THIAMINE HCL 100 MG TABLET (FP) PO SCH (22:43)
[2022-07-28] MEDS: LORazepam 1 MG TABLET PO SCH ×2 (05:52→10:49)
[2022-07-28 09:08] VITALS: RESP 18; TEMP 97.5
[2022-07-28] MEDS ORDERED: predniSONE 10 MG TABLET (UD) PO ONE (10:00)
[2022-07-28] MEDS: amLODIPine BESYLATE 10 MG TABLET (FP) PO SCH (10:47)
[2022-07-28] MEDS: PRENATAL VITAMINS W/ FOLIC ACID TABLET (FP) PO SCH (10:47)
[2022-07-28] MEDS: LISINOPRIL 10 MG TABLET PO SCH (10:47)
[2022-07-28] MEDS: LACTULOSE 20 GM/30 ML UDC (FOR ORAL USE ONLY) PO SCH ×2 (10:48→13:27)
[2022-07-28 12:56] VITALS: BP 138/58; PULSE 78
[2022-07-29] MEDS ORDERED: LORazepam 0.5 MG TABLET PO PRN
[2022-07-29] MEDS ORDERED: LORazepam 0.5 MG TABLET PO SCH (05:00)
[2022-07-29] MEDS ORDERED: predniSONE 20 MG TABLET (UD) PO ONE (10:00)
[2022-07-30] MEDS ORDERED: LORazepam 0.5 MG TABLET PO ONE (05:00)
[2022-07-30] MEDS ORDERED: predniSONE 10 MG TABLET (UD) PO ONE (06:00)
== END 2022-07-28 15:49 | disposition left against medical advice (07) | DRG 770 ==
LOC: YASAS 09:35 → Y3N 11:42
PROVIDERS: ADMIT Allergy & Immunology; ATTEND Surgery
PROC: HZ2ZZZZ Detoxification Services for Substance Abuse Treatment (ICD-10-PCS; principal; 2022-07-26)
DX: F10.230 Alcohol dependence with withdrawal, uncomplicated (principal); F17.210 Nicotine dependence, cigarettes, uncomplicated; F31.9 Bipolar disorder, unspecified; F43.10 Post-traumatic stress disorder, unspecified; I10 Essential (primary) hypertension; M1A.261 Drug-induced chronic gout, right knee; R79.89 Other specified abnormal findings of blood chemistry; E66.9 Obesity, unspecified; Z68.30 Body mass index [BMI] 30.0-30.9, adult; Z86.73 Personal history of transient ischemic attack (TIA), and cerebral infarction without residual deficits; Z86.39 Personal history of other endocrine, nutritional and metabolic disease; Z99.89 Dependence on other enabling machines and devices
CPT/HCPCS: 36415; 80053; 80061; 82140; 82962; 83036; 85027; 86780; 87811; C9803-CS; U0003; U0005

== ENCOUNTER 2023-08-08 22:04 | Inpatient (IN) | payer OTHER ==
[2023-08-08 23:02] VITALS: BMI 27.3
[2023-08-08] MEDS ORDERED: guaiFENesin 600 MG TABLET.ER (FP) PO PRN (23:23)
[2023-08-08] MEDS ORDERED: ONDANSETRON *ODT* 4 MG TABLET SL PRN (23:23)
[2023-08-08] MEDS ORDERED: BENZOCAINE/MENTHOL (CHLORASEPTIC ) LOZENGE MM PRN (23:23)
[2023-08-08] MEDS ORDERED: LOPERAMIDE HCL 2 MG CAPSULE PO PRN (23:23)
[2023-08-08] MEDS ORDERED: ACETAMINOPHEN 325 MG TABLET (FP) PO PRN (23:23)
[2023-08-08] MEDS ORDERED: MAGNESIUM HYDROX 2400MG/30ML ORAL SUSPENSION 30 ML CUP PO PRN (23:23)
[2023-08-08] MEDS ORDERED: BENZONATATE 200 MG CAPSULE PO PRN (23:23)
[2023-08-08] MEDS ORDERED: IBUPROFEN 400 MG TABLET (FP) PO PRN (23:23)
[2023-08-08] MEDS ORDERED: POLYETHYLENE GLYCOL (HEALTHYLAX) 3350 17 GM PACKET PO PRN (23:23)
[2023-08-08] MEDS ORDERED: P-EPHED 60MG/TRIPROLIDI 2.5MG TABLET PO PRN (23:23)
[2023-08-08] MEDS ORDERED: BISMUTH SUBSALICYLATE 524 MG/30 ML PO PRN (23:23)
[2023-08-08] MEDS ORDERED: NICOTINE POLACRILEX 2 MG LOZENGE BC PRN (23:23)
[2023-08-09] MEDS ORDERED: METOPROLOL TARTRATE 25 MG TABLET (FP) ONE (00:20)
[2023-08-09] MEDS: METOPROLOL TARTRATE 25 MG TABLET (FP) PO ONE (00:21)
[2023-08-09] MEDS ORDERED: chlordiazePOXIDE HCL 25 MG CAPSULE PO PRN (10:14)
[2023-08-09] MEDS: PRENATAL VITAMINS W/ FOLIC ACID TABLET (FP) PO SCH (10:50)
[2023-08-09] MEDS: ALLOPURINOL 100 MG TABLET (FP) PO SCH (10:55)
[2023-08-09] MEDS: chlordiazePOXIDE HCL 25 MG CAPSULE PO SCH (11:11)
[2023-08-09] MEDS: DICYCLOMINE HCL 10 MG CAPSULE PO PRN (11:11)
[2023-08-09] MEDS: NICOTINE POLACRILEX 2 MG GUM BUC PRN (11:12)
[2023-08-09] MEDS: PANTOPRAZOLE 40 MG TABLET PO SCH (15:15)
[2023-08-09] MEDS ORDERED: MELATONIN 5 MG TABLETS PO SCH (22:00)
[2023-08-09] MEDS: THIAMINE HCL 100 MG TABLET (FP) PO SCH (22:10)
[2023-08-09] MEDS: MELATONIN 5 MG TABLETS PO SCH (22:10)
[2023-08-11] MEDS: chlordiazePOXIDE HCL 25 MG CAPSULE PO SCH (06:00)
[2023-08-11] MEDS: MAG HYDROX/AL HYDROX/SIMETH 30 ML UNIT-DOSE CUP PO PRN (17:45)
[2023-08-11] MEDS: hydrOXYzine PAMOATE 25 MG CAPSULE (FP) PO PRN (17:45)
[2023-08-11] MEDS: IBUPROFEN 600 MG TABLET (FP) PO PRN (17:45)
[2023-08-11] MEDS: amLODIPine BESYLATE 10 MG TABLET (FP) PO SCH (18:22)
[2023-08-11] MEDS: METHOCARBAMOL 500 MG TABLET PO PRN (19:33)
[2023-08-12] MEDS ORDERED: chlordiazePOXIDE HCL 10 MG CAPSULE PO PRN
[2023-08-12] MEDS: chlordiazePOXIDE HCL 10 MG CAPSULE PO SCH (05:53)
[2023-08-12] MEDS: LURASIDONE HCL 20 MG TABLET PO SCH (18:17)
[2023-08-13] MEDS: chlordiazePOXIDE HCL 10 MG CAPSULE PO SCH (05:55)
[2023-08-13 17:07] LABS: HEMOGLOBIN 11.8 GM/dL (11.7-16.9); MCH 23.6 pg (25.7-33.7); MCHC 31.7 g/dl (32.0-35.9); MEAN CELL VOLUME 74.5 fl (80-96); MEAN PLT VOLUME 8.1 fl (7.5-11.1); PLATELET COUNT 232 10^3/uL (134-434); RBC 4.97 M/mm3 (4.00-5.60); RDW 15.8 % (11.9-15.9); WHITE BLOOD COUNT 7.2 K/mm3 (4.0-10.0)
[2023-08-13 17:08] LABS: POTASSIUM 4.3 mmol/L (3.5-5.1)
[2023-08-13 17:13] LABS: CALCIUM 9.4 mg/dL (8.5-10.1)
[2023-08-13 17:14] LABS: ALBUMIN 3.5 g/dl (3.4-5.0); BLOOD UREA NITROGEN 18.7 mg/dL (7-18)
[2023-08-13 17:17] LABS: CREATININE 1.5 mg/dL (0.55-1.3)
[2023-08-13 17:19] LABS: BILIRUBIN,TOTAL 0.2 mg/dL (0.2-1)
[2023-08-14] MEDS: chlordiazePOXIDE HCL 10 MG CAPSULE PO ONE (05:34)
[2023-08-14 08:57] VITALS: BP 150/75; PULSE 85; RESP 16; TEMP 97.7
== END 2023-08-14 08:59 | disposition home or self-care (01) | DRG 774 ==
LOC: YASAS 22:04 → Y3N 23:38
PROVIDERS: ADMIT Allergy & Immunology; ATTEND Surgery
PROC: HZ2ZZZZ Detoxification Services for Substance Abuse Treatment (ICD-10-PCS; principal; 2023-08-08)
DX: F10.230 Alcohol dependence with withdrawal, uncomplicated (principal); F14.20 Cocaine dependence, uncomplicated; F17.210 Nicotine dependence, cigarettes, uncomplicated; F31.9 Bipolar disorder, unspecified; F51.05 Insomnia due to other mental disorder; F43.10 Post-traumatic stress disorder, unspecified; N28.9 Disorder of kidney and ureter, unspecified; I10 Essential (primary) hypertension; E11.9 Type 2 diabetes mellitus without complications; M1A.2710 Drug-induced chronic gout, right ankle and foot, without tophus (tophi); Z62.0 Inadequate parental supervision and control; Z63.8 Other specified problems related to primary support group
CPT/HCPCS: 36415; 80053; 80305; 85027; 86780

== ENCOUNTER 2023-10-01 19:09 | Inpatient (IN) | payer OTHER ==
[2023-10-01 20:18] VITALS: BMI 29.2
[2023-10-01] MEDS ORDERED: IBUPROFEN 400 MG TABLET (FP) PO PRN (20:33)
[2023-10-01] MEDS ORDERED: MAG HYDROX/AL HYDROX/SIMETH 30 ML UNIT-DOSE CUP PO PRN (20:33)
[2023-10-01] MEDS ORDERED: MAGNESIUM HYDROX 2400MG/30ML ORAL SUSPENSION 30 ML CUP PO PRN (20:33)
[2023-10-01] MEDS ORDERED: BISMUTH SUBSALICYLATE 524 MG/30 ML PO PRN (20:33)
[2023-10-01] MEDS ORDERED: DICYCLOMINE HCL 10 MG CAPSULE PO PRN (20:33)
[2023-10-01] MEDS ORDERED: POLYETHYLENE GLYCOL (HEALTHYLAX) 3350 17 GM PACKET PO PRN (20:33)
[2023-10-01] MEDS ORDERED: BENZOCAINE/MENTHOL (CHLORASEPTIC ) LOZENGE MM PRN (20:33)
[2023-10-01] MEDS ORDERED: guaiFENesin 600 MG TABLET.ER (FP) PO PRN (20:33)
[2023-10-01] MEDS ORDERED: ONDANSETRON *ODT* 4 MG TABLET SL PRN (20:33)
[2023-10-01] MEDS ORDERED: BENZONATATE 200 MG CAPSULE PO PRN (20:33)
[2023-10-01] MEDS ORDERED: LOPERAMIDE HCL 2 MG CAPSULE PO PRN (20:33)
[2023-10-01] MEDS ORDERED: ACETAMINOPHEN 325 MG TABLET (FP) PO PRN (20:33)
[2023-10-01] MEDS: MELATONIN 5 MG TABLETS PO SCH (22:28)
[2023-10-01] MEDS: THIAMINE 100 MG TABLET PO SCH (22:28)
[2023-10-02] MEDS: IBUPROFEN 600 MG TABLET (FP) PO PRN (04:26)
[2023-10-02] MEDS ORDERED: LORazepam 1 MG TABLET PO PRN (09:22)
[2023-10-02] MEDS ORDERED: predniSONE 20 MG TABLET (UD) PO ONE (10:00)
[2023-10-02] MEDS: PRENATAL VITAMINS W/ FOLIC ACID TABLET (FP) PO SCH (10:10)
[2023-10-02] MEDS: FAMOTIDINE 20 MG TABLET PO SCH (10:10)
[2023-10-02] MEDS: ASPIRIN COATED 81 MG TABLET.EC PO SCH (10:10)
[2023-10-02] MEDS: amLODIPine BESYLATE 10 MG TABLET (FP) PO SCH (10:11)
[2023-10-02] MEDS: LORazepam 2 MG TABLET PO SCH (10:11)
[2023-10-02] MEDS: FOLIC ACID 1 MG TABLET (FP) PO SCH (10:11)
[2023-10-02] MEDS: NICOTINE POLACRILEX 2 MG GUM BUC PRN (10:14)
[2023-10-02 10:16] LABS: CHLORIDE 112 mmol/L (98-107); POTASSIUM 4.2 mmol/L (3.5-5.1); SODIUM 143 mmol/L (136-145)
[2023-10-02 10:18] LABS: HEMATOCRIT 35.9 % (35.4-49); HEMOGLOBIN 11.5 GM/dL (11.7-16.9); MCH 23.4 pg (25.7-33.7); MCHC 32.2 g/dl (32.0-35.9); MEAN CELL VOLUME 72.8 fl (80-96); MEAN PLT VOLUME 8.2 fl (7.5-11.1); PLATELET COUNT 267 10^3/uL (134-434); RBC 4.92 M/mm3 (4.00-5.60); RDW 15.9 % (11.9-15.9); WHITE BLOOD COUNT 6.6 K/mm3 (4.0-10.0)
[2023-10-02 10:23] LABS: ANION GAP 2 mmol/L (4-13); BLOOD UREA NITROGEN 24.6 mg/dL (7-18); CALCIUM 9.4 mg/dL (8.5-10.1); CO2 29 mmol/L (21-32); GLUCOSE,RANDOM 103 mg/dL (74-106)
[2023-10-02 10:25] LABS: ALBUMIN 3.4 g/dl (3.4-5.0)
[2023-10-02 10:27] LABS: CREATININE 1.6 mg/dL (0.55-1.3); SGOT/AST 12 U/L (15-37); SGPT/ALT 18 U/L (13-61)
[2023-10-02 10:28] LABS: TOT PROT 6.7 g/dl (6.4-8.2)
[2023-10-02 10:29] LABS: ALK PHOS 93 U/L (45-117); BILIRUBIN,TOTAL 0.2 mg/dL (0.2-1)
[2023-10-02] MEDS: predniSONE 40 MG, predniSONE 10 MG PO ONE (10:49)
[2023-10-02] MEDS: COLCHICINE 0.6 MG TAB PO SCH (10:50)
[2023-10-02] MEDS: ALLOPURINOL 100 MG TABLET (FP) PO SCH (10:56)
[2023-10-02] MEDS ORDERED: NICOTINE 14 MG/24 HOURS TOPICAL PATCH TD PRN (11:14)
[2023-10-02] MEDS: GABAPENTIN 300 MG CAPSULE PO SCH (13:06)
[2023-10-02] MEDS: LISINOPRIL 10 MG TABLET PO SCH (13:07)
[2023-10-02] MEDS: METHOCARBAMOL 500 MG TABLET PO PRN (17:34)
[2023-10-02] MEDS: LURASIDONE HCL 20 MG TABLET PO SCH (22:23)
[2023-10-02] MEDS: ATORVASTATIN CA 40 MG TABLET (FP) PO SCH (22:24)
[2023-10-03] MEDS: predniSONE 20 MG TABLET (UD) PO ONE (09:34)
[2023-10-04] MEDS: LORazepam 1 MG TABLET PO SCH (05:19)
[2023-10-04] MEDS: LISINOPRIL 20 MG TABLET PO SCH (10:10)
[2023-10-04] MEDS: predniSONE 10 MG TABLET (UD) PO ONE (10:10)
[2023-10-05] MEDS ORDERED: LORazepam 0.5 MG TABLET PO PRN
[2023-10-05] MEDS: LORazepam 0.5 MG TABLET PO SCH (05:09)
[2023-10-05] MEDS: predniSONE 20 MG TABLET (UD) PO ONE (10:45)
[2023-10-05 12:58] LABS: HIV INTERPRETATION NEGATIVE (NEGATIVE)
[2023-10-06] MEDS: LORazepam 0.5 MG TABLET PO ONE (05:15)
[2023-10-06 09:25] VITALS: PULSE 89; RESP 17; TEMP 98.7
[2023-10-06 12:48] VITALS: BP 169/86
== END 2023-10-06 09:53 | disposition home or self-care (01) | DRG 774 ==
LOC: YASAS 19:09 → Y6N 21:27
PROVIDERS: ADMIT Allergy & Immunology; ATTEND Surgery
PROC: HZ2ZZZZ Detoxification Services for Substance Abuse Treatment (ICD-10-PCS; principal; 2023-10-01)
DX: F10.230 Alcohol dependence with withdrawal, uncomplicated (principal); F14.20 Cocaine dependence, uncomplicated; F12.20 Cannabis dependence, uncomplicated; F17.210 Nicotine dependence, cigarettes, uncomplicated; F10.282 Alcohol dependence with alcohol-induced sleep disorder; F31.9 Bipolar disorder, unspecified; I10 Essential (primary) hypertension; K21.9 Gastro-esophageal reflux disease without esophagitis; M10.9 Gout, unspecified; Z62.810 Personal history of physical and sexual abuse in childhood; Z91.410 Personal history of adult physical and sexual abuse; Z63.8 Other specified problems related to primary support group; Z63.0 Problems in relationship with spouse or partner
CPT/HCPCS: 36415; 80053; 80305; 80307; 85027; 86780; 87389; 93005; 93010

== ENCOUNTER 2023-10-25 13:00 | Inpatient (IN) | payer OTHER ==
[2023-10-25 14:08] VITALS: BMI 27.8
[2023-10-25] MEDS ORDERED: METHOCARBAMOL 500 MG TABLET PO PRN (15:05)
[2023-10-25] MEDS ORDERED: POLYETHYLENE GLYCOL (HEALTHYLAX) 3350 17 GM PACKET PO PRN (15:05)
[2023-10-25] MEDS ORDERED: chlordiazePOXIDE HCL 25 MG CAPSULE PO PRN (15:05)
[2023-10-25] MEDS ORDERED: LOPERAMIDE HCL 2 MG CAPSULE PO PRN (15:05)
[2023-10-25] MEDS ORDERED: NICOTINE 7 MG/24 HOURS TOPICAL PATCH TD PRN (15:05)
[2023-10-25] MEDS ORDERED: MAG HYDROX/AL HYDROX/SIMETH 30 ML UNIT-DOSE CUP PO PRN (15:05)
[2023-10-25] MEDS ORDERED: BENZOCAINE/MENTHOL (CHLORASEPTIC ) LOZENGE MM PRN (15:05)
[2023-10-25] MEDS ORDERED: guaiFENesin 600 MG TABLET.ER (FP) PO PRN (15:05)
[2023-10-25] MEDS ORDERED: ONDANSETRON *ODT* 4 MG TABLET SL PRN (15:05)
[2023-10-25] MEDS ORDERED: BENZONATATE 200 MG CAPSULE PO PRN (15:05)
[2023-10-25] MEDS ORDERED: BISMUTH SUBSALICYLATE 262 MG/15 ML BTL PO PRN (15:05)
[2023-10-25] MEDS ORDERED: ACETAMINOPHEN 325 MG TABLET (FP) PO PRN (15:05)
[2023-10-25] MEDS ORDERED: IBUPROFEN 400 MG TABLET (FP) PO PRN (15:05)
[2023-10-25] MEDS ORDERED: DICYCLOMINE HCL 10 MG CAPSULE PO PRN (15:05)
[2023-10-25] MEDS ORDERED: MAGNESIUM HYDROX 2400MG/30ML ORAL SUSPENSION 30 ML CUP PO PRN (15:05)
[2023-10-25] MEDS ORDERED: hydrOXYzine PAMOATE 25 MG CAPSULE (FP) PO PRN (15:05)
[2023-10-25] MEDS ORDERED: NALTREXONE HCL 50 MG TABLET PO SCH (15:45)
[2023-10-25] MEDS: chlordiazePOXIDE HCL 25 MG CAPSULE PO SCH (17:36)
[2023-10-25] MEDS: NALTREXONE HCL 50 MG TABLET PO SCH (17:37)
[2023-10-25] MEDS: NICOTINE POLACRILEX 2 MG GUM BUC PRN (17:44)
[2023-10-25] MEDS: THIAMINE 100 MG TABLET PO SCH (22:17)
[2023-10-25] MEDS: GABAPENTIN 300 MG CAPSULE PO SCH (22:17)
[2023-10-25] MEDS: MELATONIN 5 MG TABLETS PO SCH (22:17)
[2023-10-25] MEDS: IBUPROFEN 600 MG TABLET (FP) PO PRN (23:29)
[2023-10-26] MEDS: chlordiazePOXIDE HCL 25 MG CAPSULE PO SCH (05:35)
[2023-10-26] MEDS: FAMOTIDINE 20 MG TABLET PO SCH (07:29)
[2023-10-26 09:08] VITALS: BP 163/93; PULSE 77; RESP 19; TEMP 97.1
[2023-10-26] MEDS: COLCHICINE 0.6 MG TAB PO SCH (10:56)
[2023-10-26] MEDS: LISINOPRIL 20 MG TABLET PO SCH (10:57)
[2023-10-26] MEDS: ATORVASTATIN CA 40 MG TABLET (FP) PO SCH (10:57)
[2023-10-26] MEDS: PRENATAL VITAMINS W/ FOLIC ACID TABLET (FP) PO SCH (10:57)
[2023-10-26] MEDS: amLODIPine BESYLATE 10 MG TABLET (FP) PO SCH (10:57)
[2023-10-26] MEDS: ASPIRIN COATED 81 MG TABLET.EC PO SCH (10:57)
[2023-10-26] MEDS: ALLOPURINOL 100 MG TABLET (FP) PO SCH (10:57)
[2023-10-26 11:49] LABS: HEMATOCRIT 35.6 % (35.4-49); HEMOGLOBIN 11.6 GM/dL (11.7-16.9); MCH 23.2 pg (25.7-33.7); MCHC 32.5 g/dl (32.0-35.9); MEAN CELL VOLUME 71.3 fl (80-96); MEAN PLT VOLUME 8.2 fl (7.5-11.1); PLATELET COUNT 270 10^3/uL (134-434); RBC 4.99 M/mm3 (4.00-5.60); RDW 16.4 % (11.9-15.9); WHITE BLOOD COUNT 7.1 K/mm3 (4.0-10.0)
[2023-10-26 11:58] LABS: POTASSIUM 4.1 mmol/L (3.5-5.1)
[2023-10-26] MEDS ORDERED: ALLOPURINOL 100 MG TABLET (FP) PO SCH (12:00)
[2023-10-26 12:06] LABS: ALBUMIN 4.3 g/dl (3.4-5.0); BLOOD UREA NITROGEN 18.2 mg/dL (7-18); CALCIUM 9.7 mg/dL (8.5-10.1)
[2023-10-26 12:09] LABS: BILIRUBIN,TOTAL 0.6 mg/dL (0.2-1); CREATININE 1.6 mg/dL (0.55-1.3)
[2023-10-26] MEDS ORDERED: amLODIPine BESYLATE 10 MG TABLET (FP) PO SCH (12:15)
[2023-10-26] MEDS ORDERED: ASPIRIN COATED 81 MG TABLET.EC PO SCH (12:15)
[2023-10-26] MEDS ORDERED: PANTOPRAZOLE 40 MG TABLET PO SCH (12:15)
[2023-10-26] MEDS ORDERED: cloNIDine HCL 0.1 MG TABLET PO PRN (13:09)
[2023-10-26] MEDS ORDERED: ATORVASTATIN CA 40 MG TABLET (FP) PO SCH (22:00)
[2023-10-27] MEDS ORDERED: chlordiazePOXIDE HCL 10 MG CAPSULE PO PRN
[2023-10-27] MEDS ORDERED: chlordiazePOXIDE HCL 10 MG CAPSULE PO SCH (05:00)
[2023-10-28] MEDS ORDERED: chlordiazePOXIDE HCL 10 MG CAPSULE PO SCH (05:00)
[2023-10-29] MEDS ORDERED: chlordiazePOXIDE HCL 10 MG CAPSULE PO ONE (05:00)
== END 2023-10-26 10:15 | disposition left against medical advice (07) | DRG 770 ==
LOC: YASAS 13:00 → Y3N 16:36
PROVIDERS: ADMIT Allergy & Immunology; ATTEND Surgery
PROC: HZ2ZZZZ Detoxification Services for Substance Abuse Treatment (ICD-10-PCS; principal; 2023-10-25)
DX: F10.230 Alcohol dependence with withdrawal, uncomplicated (principal); F14.20 Cocaine dependence, uncomplicated; F12.20 Cannabis dependence, uncomplicated; F17.210 Nicotine dependence, cigarettes, uncomplicated; F31.9 Bipolar disorder, unspecified; F43.10 Post-traumatic stress disorder, unspecified; E78.5 Hyperlipidemia, unspecified; K21.9 Gastro-esophageal reflux disease without esophagitis; Z86.73 Personal history of transient ischemic attack (TIA), and cerebral infarction without residual deficits
CPT/HCPCS: 36415; 80053; 80305; 80307; 85027; 86780; 93005; 93010

== ENCOUNTER 2023-12-11 09:58 | Inpatient (IN) | payer OTHER ==
[2023-12-11] MEDS ORDERED: BENZONATATE 200 MG CAPSULE PO PRN (11:40)
[2023-12-11] MEDS ORDERED: ONDANSETRON *ODT* 4 MG TABLET SL PRN (11:40)
[2023-12-11] MEDS ORDERED: ACETAMINOPHEN 325 MG TABLET (FP) PO PRN (11:40)
[2023-12-11] MEDS ORDERED: LOPERAMIDE HCL 2 MG CAPSULE PO PRN (11:40)
[2023-12-11] MEDS ORDERED: IBUPROFEN 600 MG TABLET (FP) PO PRN (11:40)
[2023-12-11] MEDS ORDERED: BENZOCAINE/MENTHOL (CHLORASEPTIC ) LOZENGE MM PRN (11:40)
[2023-12-11] MEDS ORDERED: NALOXONE HCL 0.4 MG/ML VIAL IM PRN (11:40)
[2023-12-11] MEDS ORDERED: BISMUTH SUBSALICYLATE 262 MG/15 ML BTL PO PRN (11:40)
[2023-12-11] MEDS ORDERED: guaiFENesin 600 MG TABLET.ER (FP) PO PRN (11:40)
[2023-12-11] MEDS ORDERED: POLYETHYLENE GLYCOL (HEALTHYLAX) 3350 17 GM PACKET PO PRN (11:40)
[2023-12-11] MEDS ORDERED: IBUPROFEN 400 MG TABLET (FP) PO PRN (11:40)
[2023-12-11] MEDS ORDERED: NALOXONE (NARCAN) HCL 4 MG/0.1 ML SPRAY NS PRN (11:40)
[2023-12-11] MEDS ORDERED: DICYCLOMINE HCL 10 MG CAPSULE PO PRN (11:40)
[2023-12-11] MEDS ORDERED: MAGNESIUM HYDROX 2400MG/30ML ORAL SUSPENSION 30 ML CUP PO PRN (11:40)
[2023-12-11] MEDS ORDERED: MAG HYDROX/AL HYDROX/SIMETH 30 ML UNIT-DOSE CUP PO PRN (11:40)
[2023-12-11] MEDS: GABAPENTIN 300 MG CAPSULE PO SCH (14:43)
[2023-12-11] MEDS: NICOTINE POLACRILEX 2 MG GUM BUC PRN (14:43)
[2023-12-11 15:13] VITALS: BMI 27.8
[2023-12-11 17:50] LABS: HIV INTERPRETATION NEGATIVE (NEGATIVE)
[2023-12-11] MEDS: THIAMINE 100 MG TABLET PO SCH (22:26)
[2023-12-11] MEDS: LURASIDONE HCL 20 MG TABLET PO SCH (22:27)
[2023-12-11] MEDS: MELATONIN 5 MG TABLETS PO SCH (22:27)
[2023-12-12] MEDS ORDERED: LORazepam 1 MG TABLET PO PRN (09:03)
[2023-12-12] MEDS: FAMOTIDINE 20 MG TABLET PO SCH (09:44)
[2023-12-12] MEDS: COLCHICINE 0.6 MG CAPSULE PO SCH (09:44)
[2023-12-12] MEDS: PRENATAL VITAMINS W/ FOLIC ACID TABLET (FP) PO SCH (09:44)
[2023-12-12] MEDS: ASPIRIN COATED 81 MG TABLET.EC PO SCH (09:44)
[2023-12-12] MEDS: amLODIPine BESYLATE 10 MG TABLET (FP) PO SCH (09:44)
[2023-12-12] MEDS: ALLOPURINOL 100 MG TABLET (FP) PO SCH (09:45)
[2023-12-12] MEDS: METHOCARBAMOL 500 MG TABLET PO PRN (09:45)
[2023-12-12] MEDS: LORazepam 2 MG TABLET PO ONE (09:45)
[2023-12-12] MEDS: NICOTINE 14 MG/24 HOURS TOPICAL PATCH TD SCH (09:45)
[2023-12-12] MEDS: LORazepam 2 MG TABLET PO SCH (10:00)
[2023-12-12] MEDS: ATORVASTATIN CA 40 MG TABLET (FP) PO SCH (22:38)
[2023-12-14] MEDS: LORazepam 1 MG TABLET PO SCH (05:18)
[2023-12-14 08:59] VITALS: BP 147/73; PULSE 75; RESP 16; TEMP 97.1
[2023-12-14] MEDS: hydrOXYzine PAMOATE 25 MG CAPSULE (FP) PO PRN (09:05)
[2023-12-15] MEDS ORDERED: LORazepam 0.5 MG TABLET PO PRN
[2023-12-15] MEDS ORDERED: LORazepam 0.5 MG TABLET PO SCH (05:00)
[2023-12-16] MEDS ORDERED: LORazepam 0.5 MG TABLET PO ONE (05:00)
== END 2023-12-14 15:00 | disposition home or self-care (01) | DRG 774 ==
LOC: YASAS 09:58 → Y6N 11:50
PROVIDERS: ADMIT Allergy & Immunology; ATTEND Surgery
PROC: HZ2ZZZZ Detoxification Services for Substance Abuse Treatment (ICD-10-PCS; principal; 2023-12-11)
DX: F10.230 Alcohol dependence with withdrawal, uncomplicated (principal); F14.20 Cocaine dependence, uncomplicated; F12.20 Cannabis dependence, uncomplicated; F17.210 Nicotine dependence, cigarettes, uncomplicated; F43.10 Post-traumatic stress disorder, unspecified; F31.9 Bipolar disorder, unspecified; I10 Essential (primary) hypertension; E78.5 Hyperlipidemia, unspecified; K21.9 Gastro-esophageal reflux disease without esophagitis; M1A.2710 Drug-induced chronic gout, right ankle and foot, without tophus (tophi); Z86.73 Personal history of transient ischemic attack (TIA), and cerebral infarction without residual deficits; Z56.0 Unemployment, unspecified
CPT/HCPCS: 36415; 80305; 80307; 86803; 87389; 93005; 93010